=== PATIENT | female | born 1960 ===

== ENCOUNTER 2020-04-26 07:13 | Outpatient (REF) | payer MEDICARE, MEDICAID, SELFPAY ==
[2020-04-26 08:06] LABS: Estimated Average Glucose 146 mg/dL; Hemoglobin A1c % 6.7 %
[2020-04-26 08:32] LABS: Alanine Aminotransferase 38 U/L (0-31); Albumin Level 4.4 g/dL (3.5-5.0); Alkaline Phosphatase 69 U/L (39-117); Anion Gap 11 (12-20); Aspartate Amino Transferase 27 U/L (5-31); Bilirubin Total 0.6 mg/dL (0.0-1.0); Blood Urea Nitrogen 17 mg/dL (9-16); Calcium 8.6 mg/dL (8.4-10.2); Carbon Dioxide 31 mmol/L (22-29); Chloride 102 mmol/L (96-108); Cholesterol 157 mg/dL; Estimated Glomerular Filt Rate > 60; Glucose Random 107 mg/dL (60-115); HDL Cholesterol 41 mg/dL; LDL Cholesterol Calculated 97 mg/dl; Potassium 4.1 mmol/l (3.3-5.1); Sodium 140 mmol/L (135-145); Total Protein 6.8 g/dL (6.5-8.0); Triglycerides 97 mg/dL
== END 2020-04-26 07:14 | disposition home or self-care (01) ==
LOC: HO.LAB 07:13
PROVIDERS: Visit Provider Internal Medicine
DX: E11.9 Type 2 diabetes mellitus without complications (principal); F32.9 Major depressive disorder, single episode, unspecified; I10 Essential (primary) hypertension
CPT/HCPCS: 80053; 80061; 83036

== ENCOUNTER 2020-05-08 17:38 | Outpatient (REF) | payer MEDICARE, MEDICAID, SELFPAY ==
--- NOTE | 2020-05-08 | MM_ITS ---
EXAMINATION: MM SCREENING DIGITAL BREAST TOMOSYNTHESIS, BILATERAL CLINICAL INFORMATION: Screening. Asymptomatic. The lifetime risk of breast cancer based on the Tyrer-Cuzick Model is 9%. COMPARISON: Mammography: 10/29/2018, 10/27/2017, 04/22/2017 TECHNIQUE: Digital breast tomosynthesis is performed in both the craniocaudal and mediolateral oblique views along with computer-aided detection (CAD). Synthesized 2D images are generated from the tomosynthesis. FINDINGS: The breasts are heterogeneously dense, which may obscure small masses (ACR BI-RADS breast composition Category c). There is fine fibronodular parenchymal pattern similar to prior studies. There is no developing density or interval mass or architectural abnormality. Again, there are punctate calcifications in both breasts, number and distribution similar to prior studies. No significant changes. MM/MM tomosynthesis screening BI IMPRESSION: No significant changes from prior exams. ASSESSMENT: BI-RADS 2: Benign RECOMMENDATION: Routine annual mammography screening. This patient's information was entered into a reminder system with a target due date for their next mammogram.
== END 2020-05-08 17:39 | disposition home or self-care (01) ==
LOC: HO.MAMMO 17:38
PROVIDERS: PCP Internal Medicine; Visit Provider Internal Medicine
DX: Z12.31 Encounter for screening mammogram for malignant neoplasm of breast (principal)
CPT/HCPCS: 77063; 77067

== ENCOUNTER 2020-06-26 06:48 | Outpatient (REF) | payer MEDICARE, MEDICAID, SELFPAY | END 2020-06-26 06:49 | disposition home or self-care (01) | LOC: HO.LAB 06:48 | PROVIDERS: Visit Provider Internal Medicine | DX: Z20.822 Contact with and (suspected) exposure to COVID-19 (principal) | CPT/HCPCS: 36415; C9803; U0003 ==

== ENCOUNTER 2020-07-27 07:51 | Outpatient (REF) | payer MEDICARE, MEDICAID, SELFPAY ==
[2020-07-27 09:03] LABS: Alanine Aminotransferase 31 U/L (0-31); Albumin Level 4.2 g/dL (3.5-5.0); Alkaline Phosphatase 64 U/L (39-117); Anion Gap 14 (12-20); Aspartate Amino Transferase 28 U/L (5-31); Bilirubin Total 0.5 mg/dL (0.0-1.0); Blood Urea Nitrogen 11 mg/dL (9-16); Carbon Dioxide 28 mmol/L (22-29); Chloride 105 mmol/L (96-108); Estimated Glomerular Filt Rate > 60; Glucose Random 119 mg/dL (60-115); Potassium 4.2 mmol/L (3.3-5.1); Sodium 143 mmol/L (135-145); Total Protein 6.9 g/dL (6.5-8.0)
[2020-07-27 09:06] LABS: Creatinine Urine 139.57 mg/dL; Microalbum/Creatinine Ratio Ur 5.7 ug/mg cr
[2020-07-27 09:20] LABS: Estimated Average Glucose 137 mg/dL; Hemoglobin A1c % 6.4 %
== END 2020-07-27 07:52 | disposition home or self-care (01) ==
LOC: HO.LAB 07:51
PROVIDERS: PCP Internal Medicine; Visit Provider Internal Medicine
DX: E11.9 Type 2 diabetes mellitus without complications (principal); G60.9 Hereditary and idiopathic neuropathy, unspecified; I10 Essential (primary) hypertension
CPT/HCPCS: 36415; 80053; 82043; 83036

== ENCOUNTER → 2020-11-16 08:49 | Outpatient (BNVA) | payer MEDICARE, MEDICAID, SELFPAY | PROVIDERS: Visit Provider Nurse Practitioner | DX: K21.9 Gastro-esophageal reflux disease without esophagitis (principal); K59.00 Constipation, unspecified; R14.0 Abdominal distension (gaseous) | CPT/HCPCS: Q3014 ==

== ENCOUNTER → 2021-01-23 09:14 | Outpatient (BNVA) | payer MEDICARE, MEDICAID, SELFPAY | PROVIDERS: PCP Internal Medicine; Visit Provider Surgery Vascular Surgery | DX: I73.9 Peripheral vascular disease, unspecified (principal) | CPT/HCPCS: 99202 ==

== ENCOUNTER 2021-02-13 09:54 | Outpatient (REF) | payer MEDICARE, MEDICAID, SELFPAY ==
--- NOTE | ~2021-02-13 | US_ITS ---
EXAMINATION: NONINVASIVE ASSESSMENT OF THE ARTERIES OF BOTH LOWER EXTREMITIES Houston Rizzo MD CLINICAL INFORMATION: Peripheral vascular disease. TECHNIQUE: Bilateral lower extremity duplex ultrasound was performed with velocity measurements and waveform analysis in the common femoral arteries, profunda femoris arteries, proximal mid and distal superficial femoral arteries, popliteal arteries and tibial vessels. This study was performed only at rest. COMPARISON: None FINDINGS: Minimal plaque is documented. Waveforms throughout are biphasic. Velocities in cm/sec and phasicity as well as the presence of plaque are reported below. RIGHT LEG: Common Femoral: 219 Profunda Femoris: 94 Proximal SFA: 138 Mid SFA: 146 Distal SFA: 117 Popliteal: 92 Tibial: 103 LEFT LEG: Common Femoral: 212 Profunda Femoris: 94 Proximal SFA: 148 Mid SFA: 153 Distal SFA: 91 Popliteal: 92 Tibial: 125 US/US DELLA complete IMPRESSION: There is no convincing evidence of any hemodynamically significant lower extremity arterial disease by waveform or duplex Doppler criteria at rest. Biphasic flow is noted throughout.
--- NOTE | ~2021-02-13 | US_ITS ---
EXAMINATION: NONINVASIVE ASSESSMENT OF THE ARTERIES OF BOTH LOWER EXTREMITIES Houston Rizzo MD CLINICAL INFORMATION: Peripheral vascular disease. TECHNIQUE: Bilateral lower extremity duplex ultrasound was performed with velocity measurements and waveform analysis in the common femoral arteries, profunda femoris arteries, proximal mid and distal superficial femoral arteries, popliteal arteries and tibial vessels. This study was performed only at rest. COMPARISON: None FINDINGS: Minimal plaque is documented. Waveforms throughout are biphasic. Velocities in cm/sec and phasicity as well as the presence of plaque are reported below. RIGHT LEG: Common Femoral: 219 Profunda Femoris: 94 Proximal SFA: 138 Mid SFA: 146 Distal SFA: 117 Popliteal: 92 Tibial: 103 LEFT LEG: Common Femoral: 212 Profunda Femoris: 94 Proximal SFA: 148 Mid SFA: 153 Distal SFA: 91 Popliteal: 92 Tibial: 125 US/US arterial duplex LE BI IMPRESSION: There is no convincing evidence of any hemodynamically significant lower extremity arterial disease by waveform or duplex Doppler criteria at rest. Biphasic flow is noted throughout.
== END 2021-02-13 09:55 | disposition home or self-care (01) ==
LOC: HO.US 09:54
PROVIDERS: PCP Internal Medicine; Visit Provider Surgery Vascular Surgery
DX: I70.213 Atherosclerosis of native arteries of extremities with intermittent claudication, bilateral legs (principal)
CPT/HCPCS: 93923; 93925

== ENCOUNTER → 2021-02-22 14:08 | Outpatient (BNVA) | payer MEDICARE, MEDICAID, SELFPAY | PROVIDERS: PCP Internal Medicine; Visit Provider Surgery Vascular Surgery | DX: I73.9 Peripheral vascular disease, unspecified (principal) | CPT/HCPCS: Q3014 ==

== ENCOUNTER → 2021-05-22 08:25 | Outpatient (BNVA) | payer MEDICARE, MEDICAID, SELFPAY | PROVIDERS: PCP Internal Medicine; Visit Provider Nurse Practitioner | DX: Z13.89 Encounter for screening for other disorder (principal) | CPT/HCPCS: Q3014 ==

== ENCOUNTER 2021-05-30 09:12 | Outpatient (REF) | payer MEDICARE, MEDICAID, SELFPAY ==
[2021-05-30 09:35] LABS: MANUAL DIFF FLAG NO
[2021-05-30 09:42] LABS: Basophils Absolute Auto 0.1 X10*3/uL (0.0-0.2); Eosinophils Absolute Auto 0.2 X10*3/uL (0.0-0.4); Eosinophils Percent Auto 2.3 % (0-4); Hematocrit 42.9 % (37.0-47.0); Hemoglobin 13.9 g/dl (12.0-16.0); Imm Gran Abs Auto 0.03 X10*3/uL (0.00-0.03); Imm Gran Pct Auto 0.4 % (0.0-0.4); Lymphocytes Absolute Auto 2.8 X10*3/uL (1.2-4.9); Lymphocytes Percent Auto 40.7 % (20-40); Mean Corpuscular HGB Conc 32.4 g/dl (31.0-35.0); Mean Corpuscular Hemoglobin 28.8 pg (27.0-33.0); Mean Platelet Volume 9.1 fL (9.4-12.3); Monocytes Absolute Auto 0.5 X10*3/uL (0.1-1.2); Monocytes Percent Auto 7.4 % (2-11); Neutrophils Absolute Auto 3.3 x10*3/uL (2.0-8.3); Neutrophils Percent Auto 48.2 % (45-73); Platelet Count 340 X10*3/uL (160-400); Red Blood Count 4.82 X10*6/uL (4.20-5.50); Red Cell Distribution Width 13.6 % (11.0-16.0); White Blood Count 6.9 X10*3/uL (4.8-10.8)
[2021-05-30 09:51] LABS: Estimated Average Glucose 128 mg/dL; Hemoglobin A1c % 6.1 %
[2021-05-30 10:03] LABS: Alanine Aminotransferase 29 U/L (0-31); Albumin Level 4.4 g/dL (3.5-5.0); Alkaline Phosphatase 79 U/L (39-117); Anion Gap 12 (12-20); Aspartate Amino Transferase 35 U/L (5-31); Bilirubin Total 0.3 mg/dL (0.0-1.0); Blood Urea Nitrogen 13 mg/dL (9-16); Calcium 9.7 mg/dL (8.4-10.2); Carbon Dioxide 31 mmol/L (22-29); Chloride 104 mmol/L (96-108); Cholesterol 273 mg/dL; Estimated Glomerular Filt Rate > 60; Glucose Random 102 mg/dL (60-115); HDL Cholesterol 49 mg/dL; LDL Cholesterol Calculated 186 mg/dl; Potassium 4.7 mmol/L (3.3-5.1); Sodium 142 mmol/L (135-145); Total Protein 7.2 g/dL (6.5-8.0); Triglycerides 191 mg/dL
[2021-05-30 10:24] LABS: Thyroid Stimulating Hormone 1.32 uIU/mL (0.32-4.0)
[2021-05-30 11:00] LABS: Creatinine Urine 68.12 mg/dL; Microalbumin Urine < 5.0 mg/L
== END 2021-05-30 09:13 | disposition home or self-care (01) ==
LOC: HO.LAB 09:12
PROVIDERS: PCP Internal Medicine; Visit Provider Internal Medicine
DX: E11.9 Type 2 diabetes mellitus without complications (principal); E78.00 Pure hypercholesterolemia, unspecified; F32.5 Major depressive disorder, single episode, in full remission; I10 Essential (primary) hypertension
CPT/HCPCS: 36415; 80053; 80061; 82043; 83036; 84443; 85025

== ENCOUNTER 2021-06-11 08:24 | Outpatient (REF) | payer MEDICARE, MEDICAID, SELFPAY ==
--- NOTE | ~2021-06-11 | MM_ITS ---
EXAMINATION: MM SCREENING DIGITAL BREAST TOMOSYNTHESIS, BILATERAL CLINICAL INFORMATION: Screening. Asymptomatic. The lifetime risk of breast cancer based on the Tyrer-Cuzick Model is 7%. COMPARISON: Mammography: 05/08/2020, 10/29/2018, 10/27/2017, 04/22/2017 TECHNIQUE: Digital breast tomosynthesis is performed in both the craniocaudal and mediolateral oblique views along with computer-aided detection (CAD). Synthesized 2D images are generated from the tomosynthesis. FINDINGS: The breasts are heterogeneously dense, which may obscure small masses (ACR BI-RADS breast composition Category c). There are no significant masses, abnormal calcifications, or other abnormalities. Breast tissue composition borders on extremely dense. Recommend pattern is similar to prior studies. No developing density. There are bilateral punctate calcifications again seen similar to prior exams. MM/MM tomosynthesis screening BI IMPRESSION: No mammographic evidence of malignancy. ASSESSMENT: BI-RADS 2: Benign RECOMMENDATION: Routine annual mammography screening. This patient's information was entered into a reminder system with a target due date for their next mammogram.
== END 2021-06-11 08:25 | disposition home or self-care (01) ==
LOC: HO.MAMMO 08:24
PROVIDERS: PCP Internal Medicine; Visit Provider Internal Medicine
DX: Z12.31 Encounter for screening mammogram for malignant neoplasm of breast (principal)
CPT/HCPCS: 77063; 77067

== ENCOUNTER 2021-07-11 08:43 | Day surgery (SDC) | payer MEDICARE, MEDICAID, SELFPAY ==
--- NOTE | 2021-07-10 12:29 | HO.ANESPROP2 ---
Documented by User: Nu Allred NP 07/10/21 12:30 HPI - Anesthesia Eval Consult details Narrative: 61yo F for Colonoscopy PMFSH Active Problems Active Problems: All Active Problems (Updated 07/04/21 @ 16:18 by Jessica Grewal, RN) Abdominal bloating (Acute) Constipation (Acute) GERD (gastroesophageal reflux disease) (Acute) PAD (peripheral artery disease) (Acute) Colon cancer screening (Acute) Past Medical History Medical History Arthritis Bipolar 1 disorder Depression Dyslipidemia Fatty liver Fibromyalgia GERD (gastroesophageal reflux disease) History of marijuana use HTN (hypertension) IBS (irritable bowel syndrome) Personal history of COVID-19 Smoker Vertigo Surgical History Surgical History History of esophagogastroduodenoscopy (EGD) History of tubal ligation Hx of colonoscopy Social History Social History Patient Tobacco Use Status: Current everyday Tobacco user Use of substances other than those prescribed or required for medical reasons: No Are you DNR?: No Advance Directives: No Advance Directives Information Provided: Yes Meds Allergies Allergy/AdvReac Type Severity Reaction Status Date / Time gabapentin [GABAPENTIN] Allergy Mild MUSCLE Verified 07/04/21 16:11 SPASMS quetiapine [Seroquel] Allergy Unknown unknown Verified 07/04/21 16:11 duloxetine [From CYMBALTA] AdvReac Mild TREMORS Verified 07/04/21 16:11 hydroxyzine [From VISTARIL] AdvReac Mild BLURRED Verified 07/04/21 16:11 VISION milnacipran [From SAVELLA] AdvReac Mild BLURRED Verified 07/04/21 16:11 VISION pregabalin [From LYRICA] AdvReac Mild MUSCLE Verified 07/04/21 16:11 SPASMS, SLEEPINESS Home Medications Medication Instructions Recorded Confirmed Last Taken Type diclofenac sodium 75 mg 75 mg PO BID 11/16/20 07/04/21 Unknown History tablet,delayed release fluoxetine 40 mg capsule 40 mg PO DAILY 11/16/20 07/04/21 Unknown History hydrochlorothiazide 25 mg tablet 25 mg PO DAILY 11/16/20 07/04/21 Unknown History losartan 100 1 tab PO DAILY 11/16/20 07/04/21 Unknown History mg-hydrochlorothiazide 25 mg tablet rosuvastatin 20 mg tablet 20 mg PO DAILY 11/16/20 07/04/21 Unknown History triamcinolone acetonide 0.5 % 1 appl TOPICAL BID 11/16/20 07/04/21 Unknown History topical cream Exam Exam Date and Time: July 10, 2021 1229 Pertinent Lab Results Pertinent Lab Results: Laboratory Tests 05/30/21 05/30/21 09:32 09:32 WBC 6.9 Hgb 13.9 Hct 42.9 Plt Count 340 Sodium 142 Potassium 4.7 Chloride 104 Carbon Dioxide 31 H BUN 13 Creatinine 0.66 Assessment and Plan Assessment Anesthesia Assessment: Chart Reviewed Documented by User: Jossie Souas MD 07/11/21 10:22 [facility] Past Medical History Medical History Arthritis Bipolar 1 disorder Depression Dyslipidemia Fatty liver Fibromyalgia GERD (gastroesophageal reflux disease) History of marijuana use HTN (hypertension) IBS (irritable bowel syndrome) Personal history of COVID-19 Smoker Vertigo Surgical History Surgical History History of esophagogastroduodenoscopy (EGD) History of tubal ligation Hx of colonoscopy History of Problems with Anesthesia: No Social History Social History Patient Tobacco Use Status: Current everyday Tobacco user Use of substances other than those prescribed or required for medical reasons: No Are you DNR?: No Advance Directives: No Advance Directives Information Provided: Yes Meds Allergies Allergy/AdvReac Type Severity Reaction Status Date / Time gabapentin [GABAPENTIN] Allergy Mild MUSCLE Verified 07/04/21 16:11 SPASMS quetiapine [Seroquel] Allergy Unknown unknown Verified 07/04/21 16:11 duloxetine [From CYMBALTA] AdvReac Mild TREMORS Verified 07/04/21 16:11 hydroxyzine [From VISTARIL] AdvReac Mild BLURRED Verified 07/04/21 16:11 VISION milnacipran [From SAVELLA] AdvReac Mild BLURRED Verified 07/04/21 16:11 VISION pregabalin [From LYRICA] AdvReac Mild MUSCLE Verified 07/04/21 16:11 SPASMS, SLEEPINESS Home Medications Medication Instructions Recorded Confirmed Last Taken Type diclofenac sodium 75 mg 75 mg PO BID 11/16/20 07/04/21 Unknown History tablet,delayed release fluoxetine 40 mg capsule 40 mg PO DAILY 11/16/20 07/04/21 Unknown History hydrochlorothiazide 25 mg tablet 25 mg PO DAILY 11/16/20 07/04/21 Unknown History losartan 100 1 tab PO DAILY 11/16/20 07/04/21 Unknown History mg-hydrochlorothiazide 25 mg tablet rosuvastatin 20 mg tablet 20 mg PO DAILY 11/16/20 07/04/21 Unknown History triamcinolone acetonide 0.5 % 1 appl TOPICAL BID 11/16/20 07/04/21 Unknown History topical cream Exam Airway Mallampati Class: II TM Dist: >3cm Neck ROM: Full Loose/Missing/Broken Teeth: No Heart: RRR Lungs: CTA Assessment and Plan Assessment Anesthesia Assessment: Anesthesia Plan Discussed Final Anesthetic Review History of Problems with Anesthesia: No NPO: Yes ASA Class: II Final Preanesthetic Review: Meds/Allgs Chart Reviewed, Consent Obtained/Reviewed and Anes Risks/Benef Reviewed Patient Risk: Low Procedure Risk: Low Anesthetic Plan Anesthetic Plan: MAC: Disposition: Standard PACU
[2021-07-11 09:54] VITALS: BP 159/78; PULSE 67; RESP 16; TEMP 36.6; O2SAT 98; BMI 26.2
[2021-07-11] MEDS: Lactated Ringers 1,000 ML 100 ML IVCONT (10:14)
--- NOTE | 2021-07-11 10:33 | MHC.SHP ---
Pre-Procedural Eval Section A Date of Service: 07/11/21 Section B Chief Complaint: Screening Relevant Family History (Specify if Yes): No Relevant Social History: Tobacco Use Present Medications: see Short Stay Collaborative assessment Medical History: Significant History (Arthritis Bipolar 1 disorder Depression Dyslipidemia Fatty liver Fibromyalgia GERD (gastroesophageal reflux disease) History of marijuana use HTN (hypertension) IBS (irritable bowel syndrome) Personal history of COVID-19 Smoker Vertigo) History of Previous Operations: Relevant previous surgery/procedure and date(s) (History of esophagogastroduodenoscopy (EGD) History of tubal ligation Hx of colonoscopy) Allergies: Allergies Allergy/AdvReac Type Severity Reaction Status Date / Time gabapentin [GABAPENTIN] Allergy Mild MUSCLE Verified 07/04/21 16:11 SPASMS quetiapine [Seroquel] Allergy Unknown unknown Verified 07/04/21 16:11 duloxetine [From CYMBALTA] AdvReac Mild TREMORS Verified 07/04/21 16:11 hydroxyzine [From VISTARIL] AdvReac Mild BLURRED Verified 07/04/21 16:11 VISION milnacipran [From SAVELLA] AdvReac Mild BLURRED Verified 07/04/21 16:11 VISION pregabalin [From LYRICA] AdvReac Mild MUSCLE Verified 07/04/21 16:11 SPASMS, SLEEPINESS Review of Systems Sugical H&P ROS: Negative: Constitution, Cardiovascular, Respiratory, Neurological, Psychiatric, Hem-Onc, Allergic/Immunologic, Gastrointestinal, Genitourinary, Musculoskeletal, Integumentary, Endocrine and Eyes/Ears/Nose/Throat Exam Surgical H&P Exam: Normal: HEENT, Normal: Heart, Normal: Lungs, Normal: Extremities, Normal: Abdomen, Normal: Skin and Normal: Neurological Plan Diagnosis/Plan: Unchanged I have reviewed the history and physical and performed a pertinent physical examination on my patient. No changes have occurred unless specified.
--- NOTE | 2021-07-11 10:54 | P.BOP_ITS ---
Brief Operative Note Date of Service: 07/11/21 Pre-op diagnosis: screening colon Post-op diagnosis: same Procedure: see op note Surgeon: Dayron Alamo MD Anesthesia: MAC Was an Counter Roller used for this Procedure?: No Estimated blood loss (mL): 0 Condition: stable Disposition: PACU
--- NOTE | 2021-07-11 10:54 | W.PM.OPN ---
Operative Note Operative Note Date of Service: 07/11/21 Narrative: Operative Information Procedure Description: Colonoscopy COLONOSCOPY Instrument: Olympus variable stiffness pediatric scope 190L Colonoscopy Monitoring: Vital signs and clinical assessment, continuous EKG monitoring, Pulse oximetry, Carbon Dioxide monitoring and blood pressure monitoring were done throughout the procedure. Colon withdrawal time was 9 minutes. Procedure: The patient was placed in the left lateral decubitis position and pre-procedure medications were administered. After a digital rectal examination of the ano-rectum, the video colonoscope was inserted into the rectum and advanced through the colon to the cecum/TI. The colonoscope was slowly withdrawn in a retrograde panoramic fashion and the colon mucosa was carefully examined including a retroflexed view of the rectum. Findings and interventions are described below. Procedure Difficulty: easy Findings: Terminal Ileum-normal Cecum:normal Ascending Colon: normal Transverse Colon -normal Descending Colon:normal Sigmoid Colon: normal Rectosigmoid junction: x 2 sessile polyps 7-9 mm removed with cold snare Rectum: Retroflexion with small internal hemorrhoids, grade I Anorectum - normal Colon preparation: [place] Bowel Preparation Scale Right colon; 3 Transverse colon: 3 Left colon; 3 (0 = Unprepared colon segment with mucosa not seen due to solid stool that cannot be cleared. 1 = Portion of mucosa of the colon segment seen, but other areas of the colon segment not well seen due to staining, residual stool and/or opaque liquid. 2 = Minor amount of residual staining, small fragments of stool and/or opaque liquid, but mucosa of colon segment seen well. 3 = Entire mucosa of colon segment seen well with no residual staining, small fragments of stool or opaque liquid) Impression and Post Procedure Diagnosis: polyps internal hemorrhoids Plan: High fiber diet leaflet Avoid straining at stool, epsom salts and sitz bath, anusol supps or cream Repeat Colonoscopy in 5 years if adenomatous polyps, 10 years if hyperplastic or earlier if clinically indicated Above findings were reviewed with the patient and relevant handouts were provided if indicated.
[2021-07-11 11:04] VITALS: BP 127/67; PULSE 67; RESP 18; TEMP 36.8; O2SAT 99
[2021-07-11 11:05] VITALS: BP 150/69; PULSE 68; RESP 17; TEMP 36.8; O2SAT 99
== END 2021-07-11 11:37 | disposition home or self-care (01) ==
PROVIDERS: PCP Internal Medicine; Visit Provider Internal Medicine Gastroenterology
PROC: 0DJD8ZZ Inspection of Lower Intestinal Tract, Via Natural or Artificial Opening Endoscopic (ICD-10-PCS; CPT 45378; principal; 2021-07-11 11:10)
DX: Z12.11 Encounter for screening for malignant neoplasm of colon (principal); K63.5 Polyp of colon; K64.0 First degree hemorrhoids; K59.00 Constipation, unspecified; R14.0 Abdominal distension (gaseous); K76.0 Fatty (change of) liver, not elsewhere classified; I10 Essential (primary) hypertension; E78.5 Hyperlipidemia, unspecified; F31.9 Bipolar disorder, unspecified; M79.7 Fibromyalgia; Z79.899 Other long term (current) drug therapy; Z88.8 Allergy status to other drugs, medicaments and biological substances; F12.90 Cannabis use, unspecified, uncomplicated; F17.200 Nicotine dependence, unspecified, uncomplicated; Z86.16 Personal history of COVID-19
CPT/HCPCS: 45385; 88305

== ENCOUNTER 2021-10-18 08:56 | Outpatient (REF) | payer MEDICARE, MEDICAID, SELFPAY ==
[2021-10-18 12:30] LABS: Alanine Aminotransferase 18 U/L (0-31); Albumin Level 4.3 g/dL (3.5-5.0); Alkaline Phosphatase 76 U/L (39-117); Anion Gap 14 (12-20); Aspartate Amino Transferase 20 U/L (5-31); Bilirubin Total 0.4 mg/dL (0.0-1.0); Blood Urea Nitrogen 12 mg/dL (9-16); Calcium 9.9 mg/dL (8.4-10.2); Carbon Dioxide 31 mmol/L (22-29); Chloride 103 mmol/L (96-108); Cholesterol 271 mg/dL; Estimated Glomerular Filt Rate > 60; Glucose Random 100 mg/dL (60-115); HDL Cholesterol 45 mg/dL; LDL Cholesterol Calculated 181 mg/dl; Potassium 4.5 mmol/L (3.3-5.1); Sodium 143 mmol/L (135-145); Total Protein 7.1 g/dL (6.5-8.0); Triglycerides 229 mg/dL
== END 2021-10-18 08:57 | disposition home or self-care (01) ==
LOC: HO.LAB 08:56
PROVIDERS: PCP Internal Medicine; Visit Provider Internal Medicine
DX: E78.00 Pure hypercholesterolemia, unspecified (principal); I10 Essential (primary) hypertension; F17.200 Nicotine dependence, unspecified, uncomplicated; Z91.14 Patient's other noncompliance with medication regimen
CPT/HCPCS: 36415; 80053; 80061

== ENCOUNTER 2021-11-14 06:42 | Outpatient (REF) | payer MEDICARE, MEDICAID, SELFPAY ==
--- NOTE | ~2021-11-14 | XR_ITS ---
EXAMINATION: XR SHOULDER, LEFT CLINICAL INFORMATION: Pain. COMPARISON: None. TECHNIQUE: AP external rotation, Grashey, scapular Y, and axillary views of the left shoulder. FINDINGS: Mild degeneration at the AC joint. Mild acromial spurring. Mild sclerotic change at the insertion of the superior rotator cuff. Mild degeneration the inferior glenohumeral articulation. There is no acute finding. XR/XR shoulder LT min 2V IMPRESSION: Mild degenerative changes. Findings may preclude to impingement. If further evaluation is warranted, recommend MR.
== END 2021-11-14 06:43 | disposition home or self-care (01) ==
LOC: HO.HOSX 06:42
PROVIDERS: Visit Provider Physician Assistant
DX: M75.22 Bicipital tendinitis, left shoulder (principal); E78.5 Hyperlipidemia, unspecified
CPT/HCPCS: 20610; 36415; 73030; 80053; 80061; 99202; J1040

== ENCOUNTER 2021-11-14 07:59 | Outpatient (REF) | payer MEDICARE, MEDICAID, SELFPAY ==
[2021-11-14 09:13] LABS: Alanine Aminotransferase 20 U/L (0-31); Albumin Level 4.1 g/dL (3.5-5.0); Alkaline Phosphatase 73 U/L (39-117); Anion Gap 13 (12-20); Aspartate Amino Transferase 20 U/L (5-31); Bilirubin Total 0.3 mg/dL (0.0-1.0); Blood Urea Nitrogen 11 mg/dL (9-16); Calcium 9.7 mg/dL (8.4-10.2); Carbon Dioxide 28 mmol/L (22-29); Chloride 104 mmol/L (96-108); Cholesterol 267 mg/dL; Estimated Glomerular Filt Rate > 60; Glucose Random 102 mg/dL (60-115); HDL Cholesterol 41 mg/dL; LDL Cholesterol Calculated 154 mg/dl; Potassium 4.4 mmol/L (3.3-5.1); Sodium 141 mmol/L (135-145); Total Protein 6.9 g/dL (6.5-8.0); Triglycerides 360 mg/dL
== END 2021-11-14 08:00 | disposition home or self-care (01) ==
LOC: HO.LAB 07:59
PROVIDERS: PCP Internal Medicine; Visit Provider Internal Medicine
DX: Z13.89 Encounter for screening for other disorder (principal)
CPT/HCPCS: 36415; 80053; 80061

== ENCOUNTER → 2021-11-16 08:41 | Outpatient (BNVA) | payer MEDICARE, MEDICAID, SELFPAY | PROVIDERS: PCP Internal Medicine; Visit Provider Nurse Practitioner | DX: Z12.11 Encounter for screening for malignant neoplasm of colon (principal); K21.9 Gastro-esophageal reflux disease without esophagitis; K59.00 Constipation, unspecified; R14.0 Abdominal distension (gaseous) | CPT/HCPCS: 99212 ==

== ENCOUNTER → 2021-12-12 08:03 | Outpatient (BNVA) | payer MEDICARE, MEDICAID, SELFPAY | PROVIDERS: PCP Internal Medicine; Visit Provider Orthopaedic Surgery | DX: M65.4 Radial styloid tenosynovitis [de Quervain] (principal); R20.0 Anesthesia of skin; R20.2 Paresthesia of skin | CPT/HCPCS: 99202 ==

== ENCOUNTER 2021-12-28 12:08 | Emergency (ER) | payer MEDICARE, MEDICAID, SELFPAY ==
--- NOTE | ~2021-12-28 | XR_ITS ---
EXAMINATION: XR CHEST CLINICAL INFORMATION: Cough COMPARISON: May 2018. TECHNIQUE: 2 views of the chest were obtained. FINDINGS: There is a subtle patchy opacity of the peripheral left upper lobe min new since the previous evaluation. A patchy infiltrate is considered. No distinct hilar adenopathy or pleural effusion. Minimal thoracic spondylitic changes are observed. XR/XR chest 2V IMPRESSION: Subtle patchy opacity of the peripheral left upper lobe new since previous evaluation. Underlying infiltrate considered. Follow-up recommended to assess for complete clearing.
[2021-12-28 12:22] VITALS: BP 177/93; PULSE 78; RESP 18; TEMP 36.3; O2SAT 97; BMI 25.7
[2021-12-28 14:52] LABS: MANUAL DIFF FLAG NO
[2021-12-28 14:54] LABS: Basophils Absolute Auto 0.1 X10*3/uL (0.0-0.2); Basophils Percent Auto 0.8 % (0-2); Eosinophils Absolute Auto 0.2 X10*3/uL (0.0-0.4); Eosinophils Percent Auto 1.9 % (0-4); Hematocrit 40.9 % (37.0-47.0); Hemoglobin 13.2 g/dl (12.0-16.0); Imm Gran Abs Auto 0.02 X10*3/uL (0.00-0.03); Imm Gran Pct Auto 0.2 % (0.0-0.4); Lymphocytes Absolute Auto 2.8 X10*3/uL (1.2-4.9); Lymphocytes Percent Auto 33.1 % (20-40); Mean Corpuscular HGB Conc 32.3 g/dl (31.0-35.0); Mean Corpuscular Hemoglobin 27.9 pg (27.0-33.0); Mean Corpuscular Volume 86.5 fL (80.0-98.0); Mean Platelet Volume 9.4 fL (9.4-12.3); Monocytes Absolute Auto 0.7 X10*3/uL (0.1-1.2); Monocytes Percent Auto 8.4 % (2-11); Neutrophils Absolute Auto 4.6 x10*3/uL (2.0-8.3); Neutrophils Percent Auto 55.6 % (45-73); Platelet Count 322 X10*3/uL (160-400); Red Blood Count 4.73 X10*6/uL (4.20-5.50); Red Cell Distribution Width 13.8 % (11.0-16.0); White Blood Count 8.3 X10*3/uL (4.8-10.8)
[2021-12-28 15:15] LABS: Alanine Aminotransferase 23 U/L (0-31); Albumin Level 4.5 g/dL (3.5-5.0); Alkaline Phosphatase 69 U/L (39-117); Anion Gap 12 (12-20); Aspartate Amino Transferase 17 U/L (5-31); Bilirubin Direct < 0.2 mg/dL (0.0-0.5); Bilirubin Total 0.4 mg/dL (0.0-1.0); Blood Urea Nitrogen 13 mg/dL (9-16); Calcium 9.8 mg/dL (8.4-10.2); Carbon Dioxide 31 mmol/L (22-29); Chloride 100 mmol/L (96-108); Creatinine Clr Calc Pharmacy 91.4; Estimated Glomerular Filt Rate > 60; Glucose Random 106 mg/dL (60-115); Potassium 4.1 mmol/L (3.3-5.1); Sodium 139 mmol/L (135-145); Total Protein 7.1 g/dL (6.5-8.0)
[2021-12-28 15:35] LABS: TSH reflex Free T4 0.77 uIU/mL (0.32-4.0)
--- NOTE | 2021-12-28 16:38 | ED_ITS ---
HPI - General Adult General Chief complaint: Anxiety Stated complaint: Anxiety Time Seen by Provider: 12/28/21 14:12 History of Present Illness HPI narrative: Patient complains of cough, dry cough for several days, body aches fatigue, tingling sensation in all extremities, feeling anxious, no chest pain no shortness of breath no suicidal or homicidal ideation not hearing voices Related Data Home Medications Medication Instructions Recorded Confirmed diclofenac sodium 75 mg 75 mg PO BID 11/16/20 07/04/21 tablet,delayed release fluoxetine 40 mg capsule 40 mg PO DAILY 11/16/20 07/04/21 hydrochlorothiazide 25 mg tablet 25 mg PO DAILY 11/16/20 07/04/21 rosuvastatin 20 mg tablet 20 mg PO DAILY 11/16/20 07/04/21 triamcinolone acetonide 0.5 % 1 appl topical BID 11/16/20 07/04/21 topical cream diphenhydramine HCl 25 mg tablet 25 mg PO BID PRN allergies 11/16/21 (Banophen) losartan 50 mg tablet 50 mg PO DAILY 11/16/21 Previous Rx's Medication Instructions Recorded simethicone 80 mg chewable tablet 80 - 160 mg PO QID PRN abdominal 03/05/21 distention 30 days #240 tabs omeprazole 20 mg capsule,delayed 20 mg PO DAILY #30 caps 05/22/21 release peg 3350-electrolytes 236 240 ml PO Q10M 1 day #4,000 mL 05/22/21 gram-22.74 gram-6.74 gram-5.86 gram solution (Golytely) magnesium oxide 400 mg (241.3 mg 400 mg PO BEDTIME 90 days #90 tabs 10/29/21 magnesium) tablet amoxicillin 500 mg tablet 1,000 mg PO TID 5 days #30 tabs 12/28/21 azithromycin 250 mg tablet See Rx Instructions PO .COMPLEX #6 12/28/21 (Zithromax Z-Az) tabs lorazepam 0.5 mg tablet (Ativan) 0.5 mg PO BID PRN anxiety #10 tabs 12/28/21 Allergies Allergy/AdvReac Type Severity Reaction Status Date / Time gabapentin [GABAPENTIN] Allergy Mild MUSCLE Verified 12/12/21 08:21 SPASMS quetiapine [Seroquel] Allergy Unknown unknown Verified 12/12/21 08:21 duloxetine [From CYMBALTA] AdvReac Mild TREMORS Verified 12/12/21 08:21 hydroxyzine [From VISTARIL] AdvReac Mild BLURRED Verified 12/12/21 08:21 VISION milnacipran [From SAVELLA] AdvReac Mild BLURRED Verified 12/12/21 08:21 VISION pregabalin [From LYRICA] AdvReac Mild MUSCLE Verified 12/12/21 08:21 SPASMS, SLEEPINESS Review of Systems Review of Systems: Positive for cough and tingling and anxiety Negatives are no fever no chills no headache no stiff neck no confusion no dizziness no chest pain no palpitations no shortness of breath no abdominal pain no nausea or vomiting no dysuria no back pain no skin rash no numbness or weakness Yes all other systems are reviewed and are negative [facility] Past Medical History Source: nursing notes reviewed Medical History Arthritis Bipolar 1 disorder Depression Dyslipidemia Fatty liver Fibromyalgia GERD (gastroesophageal reflux disease) History of marijuana use HTN (hypertension) IBS (irritable bowel syndrome) Personal history of COVID-19 Smoker Vertigo Surgical History History of esophagogastroduodenoscopy (EGD) History of tubal ligation Hx of colonoscopy Social History Social History Patient Tobacco Use Status: Current everyday Tobacco user Advance Directives: No Advance Directives Information Provided: No Current occupational status: disabled 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 Physical Exam ED Vital Signs: Vital Signs - 24 hr 12/28/21 12:22 Temperature 97.4 F Pulse Rate 78 Respiratory Rate 18 Blood Pressure 177/93 H Pulse Oximetry 97 Oxygen Delivery Method Room Air BMI result Body Mass Index 25.7 General appearance is no acute distress Head is normocephalic atraumatic Ears are normal Eyes pupils round reactive to light extraocular motions are intact The neck is supple The pharynx is clear no redness swelling or exudate the voice is normal The chest is clear to auscultation bilateral, no pleuritic discomfort no respiratory distress Heart no murmur Abdomen soft nontender Extremities full range of motion x4 Skin no rash Neuro gait and balance are normal, interaction both expression and comprehension are normal, cranial nerves 2-12 intact as tested, motor is 5 5 x 4, sensation is intact and symmetrical, cerebellar exam is normal Course Course Course Narrative: Labs including thyroid did not disclose any acute abnormality Chest x-ray did show a possible left upper lobe infiltrate and patient did have a cough so patient is treated for possible pneumonia Other symptoms of tingling and feeling anxious were addressed with an as-needed prescription for a few Ativan and recommendation follow with primary care doctor for possible treatment for anxiety Medical Decision Making Lab Data Lab results reviewed: Yes I reviewed the patient's lab results. Result diagrams: 12/28/21 14:49 12/28/21 14:49 Labs: Lab Results 12/28/21 12/28/21 Range/Units 14:49 14:49 WBC 8.3 (4.8-10.8) X10*3/uL RBC 4.73 (4.20-5.50) X10*6/uL Hgb 13.2 (12.0-16.0) g/dl Hct 40.9 (37.0-47.0) % MCV 86.5 (80.0-98.0) fL MCH 27.9 (27.0-33.0) pg MCHC 32.3 (31.0-35.0) g/dl RDW 13.8 (11.0-16.0) % Plt Count 322 (160-400) X10*3/uL MPV 9.4 (9.4-12.3) fL Immature Gran % (Auto) 0.2 (0.0-0.4) % Neut % (Auto) 55.6 (45-73) % Lymph % (Auto) 33.1 (20-40) % [place] % (Auto) 8.4 (2-11) % Eos % (Auto) 1.9 (0-4) % Baso % (Auto) 0.8 (0-2) % Lymph # (Auto) 2.8 (1.2-4.9) X10*3/uL [place] # (Auto) 0.7 (0.1-1.2) X10*3/uL Eos # (Auto) 0.2 (0.0-0.4) X10*3/uL Baso # (Auto) 0.1 (0.0-0.2) X10*3/uL Abs Immat Gran (auto) 0.02 (0.00-0.03) X10*3/uL Absolute Neuts (auto) 4.6 (2.0-8.3) x10*3/uL Absolute Nucleated RBC 0.000 (0.0-0.012) X10*3/uL Nucleated RBC % (auto) 0.0 (0.0-0.2) /100WBC Sodium 139 (135-145) mmol/L Potassium 4.1 (3.3-5.1) mmol/L Chloride 100 (96-108) mmol/L Carbon Dioxide 31 H (22-29) mmol/L Anion Gap 12 (12-20) BUN 13 (9-16) mg/dL Creatinine 0.62 (0.5-1.4) mg/dL Estim Creat Clear Calc 91.4 Estimated GFR > 60 Random Glucose 106 (60-115) mg/dL Calcium 9.8 (8.4-10.2) mg/dL Total Bilirubin 0.4 (0.0-1.0) mg/dL Direct Bilirubin < 0.2 (0.0-0.5) mg/dL AST 17 (5-31) U/L ALT 23 (0-31) U/L Alkaline Phosphatase 69 (39-117) U/L Total Protein 7.1 (6.5-8.0) g/dL Albumin 4.5 (3.5-5.0) g/dL TSH 0.77 (0.32-4.0) uIU/mL Discharge Plan Discharge Clinical Impression: Pneumonia, Anxiety Patient Disposition: Home, Self-Care Additional Instructions: X-ray showed a likely early pneumonia so we are treating with antibiotics Best plan is to take probiotics, vitamin [id number] available in any pharmacy, with antibiotics to prevent diarrhea Return any time difficulty breathing any worse condition or concerns Our blood test is did not show any dangerous condition, we checked liver kidneys thyroid and blood count Other symptoms may be from anxiety so I wrote you for a few Ativan to use only if needed for anxiety attack and best plan is follow with your doctor as there are many medications that prevent anxiety Prescriptions: New azithromycin [Zithromax Z-Az] 250 mg tablet See Rx Instructions .ROUTE .COMPLEX Qty: 6 0RF Rx Instructions: For 250 mg dose pack: take 500 mg today (day 1), then 250 mg for 4 days (days 2-5) amoxicillin 500 mg tablet 1,000 mg PO TID 5 Days Qty: 30 0RF lorazepam [Ativan] 0.5 mg tablet 0.5 mg PO BID PRN (Reason: anxiety) Qty: 10 0RF Rx Instructions: This medication may cause drowsiness so no driving for 8 hours after taking No Action simethicone 80 mg tablet,chewable 80 - 160 mg PO QID PRN (Reason: abdominal distention) 30 Days Qty: 240 3RF magnesium oxide 400 mg (241.3 mg magnesium) tablet 400 mg PO BEDTIME 90 Days Qty: 90 1RF fluoxetine 40 mg capsule 40 mg PO DAILY triamcinolone acetonide 0.5 % cream 1 appl topical BID hydrochlorothiazide 25 mg tablet 25 mg PO DAILY rosuvastatin 20 mg tablet 20 mg PO DAILY diclofenac sodium 75 mg tablet,delayed release (DR/EC) 75 mg PO BID peg 3350-electrolytes [Golytely] 236-22.74-6.74 -5.86 gram recon soln 240 ml PO Q10M 1 Days Qty: 4000 0RF Rx Instructions: until fecal effluent is clear; do not exceed a total volume of 2,000 mL omeprazole 20 mg capsule,delayed release(DR/EC) 20 mg PO DAILY Qty: 30 6RF diphenhydramine HCl [Banophen] 25 mg tablet 25 mg PO BID PRN (Reason: allergies) losartan 50 mg tablet 50 mg PO DAILY Interventions: ED Discharge Assessment Last Done: 12/28/21 17:04 Discharge Date/Time: 12/28/21 17:05
[2021-12-28] MEDS: Azithromycin 500 MG TABLET PO (16:57)
[2021-12-28] MEDS: Amoxicillin 500 MG CAPSULE 1000 MG PO (16:57)
== END 2021-12-28 17:05 | disposition home or self-care (01) ==
PROVIDERS: Physician Assistant Medical; Emergency Provider Emergency Medicine; PCP Internal Medicine
DX: F41.9 Anxiety disorder, unspecified (principal); J18.9 Pneumonia, unspecified organism; I10 Essential (primary) hypertension; E78.5 Hyperlipidemia, unspecified; Z79.02 Long term (current) use of antithrombotics/antiplatelets; Z79.899 Other long term (current) drug therapy
CPT/HCPCS: 36415; 71046; 80048; 80076; 84443; 85025; 99283

== ENCOUNTER 2022-01-03 07:51 | Outpatient (REF) | payer MEDICARE, MEDICAID, SELFPAY | END 2022-01-03 07:52 | disposition home or self-care (01) | LOC: HO.LAB 07:51 | PROVIDERS: PCP Internal Medicine; Visit Provider Internal Medicine | DX: Z13.89 Encounter for screening for other disorder (principal) ==

== ENCOUNTER 2022-01-04 09:28 | Outpatient (REF) | payer MEDICARE, MEDICAID, SELFPAY | END 2022-01-04 09:29 | disposition home or self-care (01) | LOC: HO.LNP 09:28 | PROVIDERS: Visit Provider Internal Medicine | DX: F32.A Depression, unspecified (principal); J18.1 Lobar pneumonia, unspecified organism | CPT/HCPCS: 87177; 87209 ==

== ENCOUNTER 2022-01-21 11:22 | Outpatient (REF) | payer MEDICARE, MEDICAID, SELFPAY ==
--- NOTE | ~2022-01-21 | XR_ITS ---
EXAMINATION: XR CHEST CLINICAL INFORMATION: Follow-up pneumonia COMPARISON: December 28, 2021 and May 31, 2018 TECHNIQUE: 2 views of the chest were obtained. FINDINGS: No significant abnormality is noted involving the heart, lungs, mediastinum, bony thorax or soft tissues. XR/XR chest 2V IMPRESSION: No acute disease.
== END 2022-01-21 11:23 | disposition home or self-care (01) ==
LOC: HO.XRAY 11:22
PROVIDERS: PCP Internal Medicine; Visit Provider Internal Medicine
DX: J18.9 Pneumonia, unspecified organism (principal)
CPT/HCPCS: 71046

== ENCOUNTER → 2022-02-01 08:55 | Outpatient (BNVA) | payer MEDICARE, MEDICAID, SELFPAY | PROVIDERS: PCP Internal Medicine; Visit Provider Nurse Practitioner | DX: K59.00 Constipation, unspecified (principal); K21.9 Gastro-esophageal reflux disease without esophagitis | CPT/HCPCS: 99212 ==

== ENCOUNTER 2022-02-07 07:55 | Outpatient (REF) | payer MEDICARE, MEDICAID, SELFPAY ==
--- NOTE | 2022-02-07 08:00 | EMG_ITS ---
Right median and ulnar motor and sensory studies were performed. Right radial sensory, and median and lateral antecubital brachial sensory studies were performed. Needle examination was performed on paraspinal and limb muscles. IMPRESSION: This is an unremarkable study with no evidence of median or ulnar entrapment neuropathy, plexopathy, or radiculopathy. MD JORI Garcia/KIAH / [id number]
== END 2022-02-07 07:56 | disposition home or self-care (01) ==
LOC: HO.NEURO 07:55
PROVIDERS: PCP Internal Medicine; Visit Provider Orthopaedic Surgery
DX: R20.0 Anesthesia of skin (principal); R20.2 Paresthesia of skin
CPT/HCPCS: 95886; 95910

== ENCOUNTER 2022-02-18 07:53 | Outpatient (REF) | payer MEDICARE, MEDICAID, SELFPAY ==
[2022-02-18 09:13] LABS: Alanine Aminotransferase 19 U/L (0-31); Albumin Level 4.3 g/dL (3.5-5.0); Alkaline Phosphatase 73 U/L (39-117); Anion Gap 17 (12-20); Aspartate Amino Transferase 17 U/L (5-31); Bilirubin Total 0.4 mg/dL (0.0-1.0); Blood Urea Nitrogen 18 mg/dL (9-16); Calcium 9.7 mg/dL (8.4-10.2); Carbon Dioxide 28 mmol/L (22-29); Chloride 102 mmol/L (96-108); Cholesterol 287 mg/dL; Estimated Glomerular Filt Rate > 60; Glucose Random 109 mg/dL (60-115); HDL Cholesterol 49 mg/dL; LDL Cholesterol Calculated 195 mg/dl; Potassium 4.4 mmol/L (3.3-5.1); Sodium 143 mmol/L (135-145); Total Protein 6.9 g/dL (6.5-8.0); Triglycerides 215 mg/dL
== END 2022-02-18 07:54 | disposition home or self-care (01) ==
LOC: HO.LAB 07:53
PROVIDERS: Visit Provider Internal Medicine
DX: E78.00 Pure hypercholesterolemia, unspecified (principal); F32.A Depression, unspecified; I10 Essential (primary) hypertension; Z91.14 Patient's other noncompliance with medication regimen
CPT/HCPCS: 36415; 80053; 80061

== ENCOUNTER → 2022-03-06 08:56 | Outpatient (BNVA) | payer MEDICARE, MEDICAID, SELFPAY | PROVIDERS: PCP Internal Medicine; Visit Provider Orthopaedic Surgery | DX: M65.4 Radial styloid tenosynovitis [de Quervain] (principal); R20.0 Anesthesia of skin; R20.2 Paresthesia of skin | CPT/HCPCS: 20550; 99212; J1100 ==

== ENCOUNTER 2022-06-04 09:35 | Outpatient (REF) | payer MEDICARE, MEDICAID, SELFPAY ==
[2022-06-04 10:55] LABS: MANUAL DIFF FLAG NO
[2022-06-04 11:04] LABS: Basophils Absolute Auto 0.1 X10*3/uL (0.0-0.2); Eosinophils Absolute Auto 0.2 X10*3/uL (0.0-0.4); Eosinophils Percent Auto 1.9 % (0-4); Hematocrit 44.5 % (37.0-47.0); Hemoglobin 13.9 g/dl (12.0-16.0); Imm Gran Abs Auto 0.02 X10*3/uL (0.00-0.03); Imm Gran Pct Auto 0.2 % (0.0-0.4); Lymphocytes Absolute Auto 2.5 X10*3/uL (1.2-4.9); Lymphocytes Percent Auto 29.6 % (20-40); Mean Corpuscular HGB Conc 31.2 g/dl (31.0-35.0); Mean Corpuscular Hemoglobin 27.9 pg (27.0-33.0); Mean Corpuscular Volume 89.2 fL (80.0-98.0); Mean Platelet Volume 10.1 fL (9.4-12.3); Monocytes Absolute Auto 0.6 X10*3/uL (0.1-1.2); Monocytes Percent Auto 7.5 % (2-11); Neutrophils Percent Auto 59.8 % (45-73); Platelet Count 351 X10*3/uL (160-400); Red Blood Count 4.99 X10*6/uL (4.20-5.50); Red Cell Distribution Width 13.4 % (11.0-16.0); White Blood Count 8.3 X10*3/uL (4.8-10.8)
[2022-06-04 11:38] LABS: Alanine Aminotransferase 24 U/L (0-31); Albumin Level 4.4 g/dL (3.5-5.0); Alkaline Phosphatase 74 U/L (39-117); Anion Gap 12 (12-20); Aspartate Amino Transferase 20 U/L (5-31); Bilirubin Total 0.3 mg/dL (0.0-1.0); Blood Urea Nitrogen 16 mg/dL (9-16); Calcium 9.7 mg/dL (8.4-10.2); Carbon Dioxide 34 mmol/L (22-29); Chloride 104 mmol/L (96-108); Cholesterol 144 mg/dL; Estimated Glomerular Filt Rate > 60; Glucose Fasting 98 mg/dL (60-99); HDL Cholesterol 46 mg/dL; LDL Cholesterol Calculated 72 mg/dl; Potassium 4.6 mmol/L (3.3-5.1); Sodium 145 mmol/L (135-145); Thyroid Stimulating Hormone 0.94 uIU/mL (0.32-4.0); Total Protein 6.7 g/dL (6.5-8.0); Triglycerides 132 mg/dL
== END 2022-06-04 09:36 | disposition home or self-care (01) ==
LOC: HO.10HDL 09:35
PROVIDERS: Visit Provider Internal Medicine
DX: E78.00 Pure hypercholesterolemia, unspecified (principal); F32.4 Major depressive disorder, single episode, in partial remission; I10 Essential (primary) hypertension; Z72.0 Tobacco use
CPT/HCPCS: 36415; 80053; 80061; 84443; 85025; 99202

== ENCOUNTER 2022-06-12 16:35 | Outpatient (REF) | payer MEDICARE, MEDICAID, SELFPAY ==
--- NOTE | ~2022-06-12 | MR_ITS ---
EXAMINATION: MR angio head wo con, MR head/brain wo/w con CLINICAL INFORMATION: Left hemifacial spasm COMPARISON: None TECHNIQUE: Multiplanar multisequence MR imaging of the brain was obtained without and following the administration of 7 mL Gadavist intravenous contrast. Noncontrast [id number] MRA of the brain was also performed. FINDINGS: There is no vascular compression of the cisternal segments of the seventh/eighth nerve complexes or trigeminal nerves. The CSF in Meckel's cave is preserved. The foramina ovale are normal. No cerebellopontine angle lesion is seen. There is no abnormal leptomeningeal enhancement corresponding to basilar cisterns. The third division of the trigeminal nerve is normal along its course in the vehicle operator spaces. No marrow signal abnormality is seen within the mandible. There is no abnormal enhancement or edematous change corresponding to the second division of the trigeminal nerve within the infraorbital foramen or at the level of foramen rotundum. The cavernous sinuses opacify symmetrically. The orbits are normal. There is an arachnoid cyst in the right cerebellopontine angle measuring up to 1.7 cm (series 13 image 39) which demonstrates mass effect on the posterior aspect of the right seventh/8th nerve complex. There is no acute infarct on diffusion-weighted imaging. There is no intracranial hemorrhage on iron-sensitive imaging. No midline shift or herniation. Few scattered foci of supratentorial white matter T2/FLAIR hyperintensity and patchy FLAIR signal abnormality involving the central jorge luis, likely reflecting sequela of chronic microangiopathy. No hydrocephalus. Mild generalized cerebral volume loss with commensurate sulcal and ventricular prominence. No abnormal parenchymal or extra-axial enhancement. The major flow voids at the skull base are preserved. The midline structures are normal. The cerebellar tonsils are normally positioned. The craniocervical junction is normal. Marrow signal is within normal limits. The visualized soft tissues are without significant abnormality. No signal abnormality within the paranasal sinuses or within the mastoid air cells. [id number] MRA of the brain is motion degraded. There is a 5 mm laterally projecting aneurysm of the right supraclinoid ICA (series 3 image 83). There is an apparent high-grade stenosis of the left MCA at the bifurcation which may be artifactual. No other apparent arterial high-grade stenosis or large vessel occlusion. MR/MR angio head wo con IMPRESSION: 1. No etiology for left hemifacial spasm is identified. 2. Right cerebellopontine angle arachnoid cyst measuring up to 1.7 cm demonstrates mass effect on the posterior aspect of the right seventh/8th nerve complex. 3. 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 4. MRA of the brain is motion degraded. 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 Apparent high-grade stenosis of the distal left MCA at the bifurcation which may be artifactual given the degree of motion artifact. Recommend further evaluation with CTA of the brain.
--- NOTE | ~2022-06-12 | MR_ITS ---
EXAMINATION: MR angio head wo con, MR head/brain wo/w con CLINICAL INFORMATION: Left hemifacial spasm COMPARISON: None TECHNIQUE: Multiplanar multisequence MR imaging of the brain was obtained without and following the administration of 7 mL Gadavist intravenous contrast. Noncontrast [id number]-[id number] MRA of the brain was also performed. FINDINGS: There is no vascular compression of the cisternal segments of the seventh/eighth nerve complexes or trigeminal nerves. The CSF in Meckel's cave is preserved. The foramina ovale are normal. No cerebellopontine angle lesion is seen. There is no abnormal leptomeningeal enhancement corresponding to basilar cisterns. The third division of the trigeminal nerve is normal along its course in the fifth grade teacher spaces. No marrow signal abnormality is seen within the mandible. There is no abnormal enhancement or edematous change corresponding to the second division of the trigeminal nerve within the infraorbital foramen or at the level of foramen rotundum. The cavernous sinuses opacify symmetrically. The orbits are normal. There is an arachnoid cyst in the right cerebellopontine angle measuring up to 1.7 cm (series 13 image 39) which demonstrates mass effect on the posterior aspect of the right seventh/8th nerve complex. There is no acute infarct on diffusion-weighted imaging. There is no intracranial hemorrhage on iron-sensitive imaging. No midline shift or herniation. Few scattered foci of supratentorial white matter T2/FLAIR hyperintensity and patchy FLAIR signal abnormality involving the central jorge luis, likely reflecting sequela of chronic microangiopathy. No hydrocephalus. Mild generalized cerebral volume loss with commensurate sulcal and ventricular prominence. No abnormal parenchymal or extra-axial enhancement. The major flow voids at the skull base are preserved. The midline structures are normal. The cerebellar tonsils are normally positioned. The craniocervical junction is normal. Marrow signal is within normal limits. The visualized soft tissues are without significant abnormality. No signal abnormality within the paranasal sinuses or within the mastoid air cells. [id number] MRA of the brain is motion degraded. There is a 5 mm laterally projecting aneurysm of the right supraclinoid ICA (series 3 image 83). There is an apparent high-grade stenosis of the left MCA at the bifurcation which may be artifactual. No other apparent arterial high-grade stenosis or large vessel occlusion. MR/MR head/brain wo/w con IMPRESSION: 1. No etiology for left hemifacial spasm is identified. 2. Right cerebellopontine angle arachnoid cyst measuring up to 1.7 cm demonstrates mass effect on the posterior aspect of the right seventh/8th nerve complex. 3. 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 4. MRA of the brain is motion degraded. 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 Apparent high-grade stenosis of the distal left MCA at the bifurcation which may be artifactual given the degree of motion artifact. Recommend further evaluation with CTA of the brain.
== END 2022-06-12 16:36 | disposition home or self-care (01) ==
LOC: HO.MRI 16:35
PROVIDERS: Visit Provider Nurse Practitioner Family
DX: G51.32 Clonic hemifacial spasm, left (principal); R51.9 Headache, unspecified
CPT/HCPCS: 70544; 70553; A9585

== ENCOUNTER 2022-07-10 08:54 | Outpatient (REF) | payer MEDICARE, MEDICAID, SELFPAY ==
--- NOTE | ~2022-07-10 | CT_ITS ---
EXAMINATION: CT ANGIOGRAM NECK CLINICAL INFORMATION: Previously suspected 5 mm right supraclinoid ICA aneurysm and high-grade stenosis of the distal left MCA on prior MRA for follow up exam. Cerebral aneurysm, nonruptured. COMPARISON: 06/12/2022 MRA. TECHNIQUE: Volumetric CT angiography of the head/neck was performed from the lung apices to the skull vertex utilizing the bolus intravenous administration of 75 mL of Omnipaque 350 contrast material. Delayed postcontrast CT images of the brain, neck and upper chest were obtained. 2D multiplanar reconstructions and 3D MIP renderings were performed either on an independent workstation or at the CT console workstation. The degree of stenosis determined by NASCET criteria. This CT examination was performed using dose optimization techniques as appropriate, variously including the following: *Automated exposure control *Adjustment of mA and/or kV according to patient size (this includes techniques or standardized protocols for targeted exams where dose is matched to indication/reason for exam; i.e. extremities or head) *Use of iterative reconstruction technique DLP: 2333 mGy-cm FINDINGS: CT BRAIN: Mild generalized diffuse brain parenchymal volume loss is noted with a relative biparietal and parasylvian predominance. No acute territorial infarct, intracranial mass lesion, extra-axial fluid collection, hemorrhage, pathologic intracranial enhancement, space-occupying process or mass effect. The major dural sinuses appear opacified. Bliss-white matter differentiation is maintained. Supratentorial brain parenchymal attenuation appears grossly within normal limits. There is a tiny hypodensity in the right jorge luis which is nonspecific and does not correlate to an abnormality seen on the previous MRI; uncertain if this represents a tiny infarct since the previous study. The ventricular system and subarachnoid spaces are consistent with mild volume loss without hydrocephalus. The bony structures appear intact and the visualized airspaces are unopacified. The visualized intraorbital soft tissues appear grossly unremarkable. CT NECK/CHEST: Limited visualization due to artifacts. There is a 5 mm stellate nodular opacity in the anterior right upper lobe with pleural tags associated with it which could be inflammatory or post inflammatory in nature. Scattered pulmonary emphysematous changes are suspected. Probable pleural parenchymal scarring at both lung apices. Visualized mediastinum is grossly unremarkable. Visualized soft tissue neck structures are grossly unremarkable within the limitations of the study. SKELETAL: Multilevel cervical DDD and spondylosis are noted, with lordotic reversal centered at C5. Otherwise, skeletal structures appear grossly intact. CTA: The thoracic aortic shows normal caliber, with a normal three-vessel arch configuration, with patent brachiocephalic vessels. Accounting for artifacts, the vertebral artery origins are patent and normal in caliber. The left vertebral artery is dominant. The cervical vertebral arteries demonstrate no significant focal stenosis or segmental occlusion. There is minimal atheromatous luminal irregularity in the V3 segment of the right vertebral artery. The common carotid arteries are patent and normal in caliber with smooth contours bilaterally with a smoothly contoured right carotid bifurcation. The right ICA is patent and normal in caliber with a patent right external carotid artery. On the left side, there is partially calcified plaque at the bifurcation at the base of the carotid bulb with less than 50% diameter reduction stenosis based on NASCET criteria. Otherwise, the left ICA is patent and normal in caliber with a patent external carotid artery. The intracranial ICAs are patent and normal in caliber. Note is made of a 3 mm wide-necked aneurysm arising from the superolateral wall of the right paraclinoid ICA, ophthalmic segment. The A1 and A2 segments are patent and normal in caliber. The anterior communicating artery is not optimally visualized but is likely within normal limits. The right M1 segment is patent and normal in caliber with a normal appearance to the right M2 branches. On the left side, there is suspicion for a severe short segment focal stenosis at the M1 bifurcation, as suggested on the previous MRA. The intradural vertebral arteries are patent and normal in caliber. The basilar artery is normal in caliber and smoothly contoured. The posterior cerebral arteries are patent and normal in caliber bilaterally. A left posterior communicating artery is visualized. CT/CT angio head neck IMPRESSION: 1. A 3 mm wide-necked aneurysm arising from the superolateral wall of the right paraclinoid ICA, ophthalmic segment. 2. Partially calcified plaque at the left carotid bulb with less than 50% diameter reduction stenosis based on NASCET criteria. 3. Suspicion for a severe short segment focal stenosis at the bifurcation of the distal left M1 segment. 4. A tiny hypodensity in the right jorge luis which is nonspecific. Cannot exclude a tiny infarct since the previous MRI of 06/12/2022. 5. A 5 mm stellate nodular opacity in the anterior right upper lobe. If this patient is not at elevated risk (no history of smoking or underlying malignancy), then no further follow up for this is suggested on the basis of the current Fleischner criteria. If the patient is at elevated risk, then a follow up CT the chest would be recommended in 12 months. 6. Cervical degenerative changes.
[2022-07-10] MEDS: iohexoL 350 MG/ML 100 ML INFUS..BTL IV (10:30)
[2022-07-10 14:40] LABS: Creatinine POC 0.4 mg/dL (0.5-1.4); GFR POC > 60
== END 2022-07-10 08:55 | disposition home or self-care (01) ==
LOC: HO.CT 08:54
PROVIDERS: PCP Internal Medicine; Visit Provider Nurse Practitioner Family
DX: I67.1 Cerebral aneurysm, nonruptured (principal); R51.9 Headache, unspecified; I10 Essential (primary) hypertension; E78.5 Hyperlipidemia, unspecified
CPT/HCPCS: 70496; 70498; 82565; Q9967

== ENCOUNTER → 2022-08-02 08:22 | Outpatient (BNVA) | payer MEDICARE, MEDICAID, SELFPAY | PROVIDERS: PCP Internal Medicine; Visit Provider Nurse Practitioner | DX: K21.9 Gastro-esophageal reflux disease without esophagitis (principal); K59.00 Constipation, unspecified | CPT/HCPCS: 99212 ==

== ENCOUNTER 2022-08-10 07:28 | Outpatient (REF) | payer MEDICARE, MEDICAID, SELFPAY ==
[2022-08-10 07:42] LABS: MANUAL DIFF FLAG NO
[2022-08-10 08:07] LABS: Basophils Absolute Auto 0.1 X10*3/uL (0.0-0.2); Basophils Percent Auto 0.9 % (0-2); Eosinophils Absolute Auto 0.1 X10*3/uL (0.0-0.4); Hematocrit 42.4 % (37.0-47.0); Hemoglobin 13.6 g/dl (12.0-16.0); Imm Gran Abs Auto 0.02 X10*3/uL (0.00-0.03); Imm Gran Pct Auto 0.3 % (0.0-0.4); Lymphocytes Absolute Auto 2.7 X10*3/uL (1.2-4.9); Lymphocytes Percent Auto 41.7 % (20-40); Mean Corpuscular HGB Conc 32.1 g/dl (31.0-35.0); Mean Corpuscular Hemoglobin 27.8 pg (27.0-33.0); Mean Corpuscular Volume 86.5 fL (80.0-98.0); Mean Platelet Volume 9.3 fL (9.4-12.3); Monocytes Absolute Auto 0.4 X10*3/uL (0.1-1.2); Monocytes Percent Auto 6.5 % (2-11); Neutrophils Absolute Auto 3.1 x10*3/uL (2.0-8.3); Neutrophils Percent Auto 48.6 % (45-73); Platelet Count 317 X10*3/uL (160-400); White Blood Count 6.5 X10*3/uL (4.8-10.8)
[2022-08-10 08:24] LABS: Anion Gap 14 (12-20); Blood Urea Nitrogen 13 mg/dL (9-16); Calcium 9.2 mg/dL (8.4-10.2); Carbon Dioxide 26 mmol/L (22-29); Chloride 107 mmol/L (96-108); Estimated Glomerular Filt Rate > 60; Glucose Random 106 mg/dL (60-115); Potassium 4.2 mmol/L (3.3-5.1); Sodium 143 mmol/L (135-145)
[2022-08-10 09:55] LABS: Carbamazepine Tegretol < 2.0 mcg/mL (5.0-12.0)
== END 2022-08-10 07:29 | disposition home or self-care (01) ==
LOC: HO.LAB 07:28
PROVIDERS: PCP Internal Medicine; Visit Provider Nurse Practitioner Family
DX: R20.0 Anesthesia of skin (principal); R20.2 Paresthesia of skin; R51.9 Headache, unspecified; G40.909 Epilepsy, unspecified, not intractable, without status epilepticus; I10 Essential (primary) hypertension; Z79.899 Other long term (current) drug therapy
CPT/HCPCS: 36415; 80048; 80156; 85025

== ENCOUNTER → 2022-08-13 15:03 | Outpatient (BNVA) | payer MEDICARE, MEDICAID, SELFPAY | PROVIDERS: PCP Internal Medicine; Visit Provider Nurse Practitioner Family | DX: G51.32 Clonic hemifacial spasm, left (principal); R51.9 Headache, unspecified; I67.1 Cerebral aneurysm, nonruptured | CPT/HCPCS: 99212 ==

== ENCOUNTER 2022-12-09 08:51 | Outpatient (REF) | payer OTHER, SELFPAY ==
[2022-12-09 10:09] LABS: Alanine Aminotransferase 20 U/L (0-31); Albumin Level 4.1 g/dL (3.5-5.0); Alkaline Phosphatase 66 U/L (39-117); Anion Gap 12 (12-20); Aspartate Amino Transferase 21 U/L (5-31); Bilirubin Total 0.4 mg/dL (0.0-1.0); Blood Urea Nitrogen 22 mg/dL (9-16); Calcium 9.4 mg/dL (8.4-10.2); Carbon Dioxide 30 mmol/L (22-29); Chloride 107 mmol/L (96-108); Cholesterol 138 mg/dL; Estimated Glomerular Filt Rate > 60; Glucose Random 104 mg/dL (60-115); HDL Cholesterol 43 mg/dL; LDL Cholesterol Calculated 69 mg/dl; Potassium 4.3 mmol/L (3.3-5.1); Sodium 145 mmol/L (135-145); Total Protein 6.6 g/dL (6.5-8.0); Triglycerides 134 mg/dL
== END 2022-12-09 08:52 | disposition home or self-care (01) ==
LOC: HO.LAB 08:51
PROVIDERS: PCP Internal Medicine; Visit Provider Internal Medicine
DX: E78.00 Pure hypercholesterolemia, unspecified (principal); F32.4 Major depressive disorder, single episode, in partial remission; I10 Essential (primary) hypertension; Z72.0 Tobacco use
CPT/HCPCS: 36415; 80053; 80061

== ENCOUNTER 2023-01-16 11:02 | Outpatient (REF) | payer OTHER, SELFPAY ==
--- NOTE | ~2023-01-16 | XR_ITS ---
EXAMINATION: XR ELBOW, RIGHT XR ELBOW, LEFT CLINICAL INFORMATION: Pain. COMPARISON: None. TECHNIQUE: 3 views of each elbow. FINDINGS: Right elbow: There is no evidence of acute fracture or dislocation of the right elbow. No right elbow effusion. There is some spurring about the coronoid process and olecranon. There is some mild spurring about the medial and lateral humeral epicondyles which may be related to calcific tendinitis. Joint spaces appear maintained. Left elbow: There is no evidence of acute fracture or dislocation of the left elbow. No left elbow effusion is seen. Left elbow joint spaces are maintained. There is minimal spurring about the coronoid process. There is small calcification septum insertion of the triceps tendon on the olecranon. Calcification is seen involving medial and lateral epicondyles consistent with calcific epicondylitis. XR/XR elbow RT min 3V IMPRESSION: No fracture or effusion of right or left elbows. Evidence for medial and lateral calcific epicondylitis of both elbows.
--- NOTE | ~2023-01-16 | XR_ITS ---
EXAMINATION: XR ELBOW, RIGHT XR ELBOW, LEFT CLINICAL INFORMATION: Pain. COMPARISON: None. TECHNIQUE: 3 views of each elbow. FINDINGS: Right elbow: There is no evidence of acute fracture or dislocation of the right elbow. No right elbow effusion. There is some spurring about the coronoid process and olecranon. There is some mild spurring about the medial and lateral humeral epicondyles which may be related to calcific tendinitis. Joint spaces appear maintained. Left elbow: There is no evidence of acute fracture or dislocation of the left elbow. No left elbow effusion is seen. Left elbow joint spaces are maintained. There is minimal spurring about the coronoid process. There is small calcification septum insertion of the triceps tendon on the olecranon. Calcification is seen involving medial and lateral epicondyles consistent with calcific epicondylitis. XR/XR elbow LT min 3V IMPRESSION: No fracture or effusion of right or left elbows. Evidence for medial and lateral calcific epicondylitis of both elbows.
== END 2023-01-16 11:03 | disposition home or self-care (01) ==
LOC: HO.HOSX 11:02
PROVIDERS: PCP Internal Medicine; Visit Provider Physician Assistant
DX: M77.12 Lateral epicondylitis, left elbow (principal); M77.11 Lateral epicondylitis, right elbow
CPT/HCPCS: 73080

== ENCOUNTER 2023-01-16 11:02 | Outpatient (AMB) | payer OTHER, MEDICAID, SELFPAY ==
--- NOTE | 2023-01-16 11:05 | MHC.OFFVIS ---
Intake Intake Visit Reasons: New prob- B/L Elbow pain Intake Note: Mitzy is a 62 year old right hand dominant female who presents today for an evaluation of her bilateral elbow pain. No hx of injections. No hx of PT. Patient reports her right elbow is worses when it comes to pain than the left, they both swell just about the same. She states this started 5 months ago when she started to notice they were swollen. Patient uses diclofenac ointment which gives her relief. Denies numbness and tingling. Allergies gabapentin [GABAPENTIN] Allergy (Mild, Verified 01/16/23 11:13) MUSCLE SPASMS quetiapine [Seroquel] Allergy (Unknown, Verified 01/16/23 11:13) unknown duloxetine [From CYMBALTA] Adverse Reaction (Mild, Verified 01/16/23 11:13) TREMORS hydroxyzine [From VISTARIL] Adverse Reaction (Mild, Verified 01/16/23 11:13) BLURRED VISION milnacipran [From SAVELLA] Adverse Reaction (Mild, Verified 01/16/23 11:13) BLURRED VISION pregabalin [From LYRICA] Adverse Reaction (Mild, Verified 01/16/23 11:13) MUSCLE SPASMS, SLEEPINESS HPI New prob- B/L Elbow pain HPI Details 62-year-old right hand dominant female who presents in the office today for an evaluation of bilateral elbow pain. The patient claims the right elbow is worse then the left elbow, when speaking about pain. She confirms edema bilaterally. She reports her symptoms began 5 months ago, in 07/2022, when she first noticed the edema. She confirms the use of diclofenac ointment, which gives her relief. She numb and tingling in the ring and little fingers bilaterally. Patient has no history of cortisone injections or physical therapy. FOR[facility]LY [facility], LATER [facility] Medical History Arthritis Bipolar 1 disorder Depression Dyslipidemia Fatty liver Fibromyalgia GERD (gastroesophageal reflux disease) H. pylori infection History of COVID-19 History of marijuana use HTN (hypertension) IBS (irritable bowel syndrome) Personal history of COVID-19 Sensorineural hearing loss Smoker Vertigo Surgical History H/O breast biopsy History of esophagogastroduodenoscopy (EGD) History of tubal ligation Hx of colonoscopy Family History Father Rheumatoid arthritis Mother Rheumatoid arthritis Osteoarthritis Asthma COPD (chronic obstructive pulmonary disease) Dementia Stented coronary artery Sister Rheumatoid arthritis Osteoarthritis Social History Alcohol intake: current Alcohol intake frequency: holidays/special occasions only Patient Tobacco Use Status: Current everyday Tobacco user Substance Use Type: Marijuana Current occupational status: disabled 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 No ecchymosis, erythema, or edema. No tenderness to palpation over the olecranon. Tenderness to the medial or lateral epicondyle. She reports numbness and tingling to the ring and little fingers bilaterally. Assessment & Plan Assessment & Plan (1) Right tennis elbow: Code(s): M77.11 - Lateral epicondylitis, right elbow (2) Left tennis elbow: Code(s): M77.12 - Lateral epicondylitis, left elbow Plan Ms. Everett is a 62-year-old right hand dominant female who presents in the office today for an evaluation of bilateral elbow pain. The patient claims the right elbow is worse then the left elbow, when speaking about pain. She confirms edema bilaterally. She reports her symptoms began 5 months ago, in 07/2022, when she first noticed the edema. She confirms the use of diclofenac ointment, which gives her relief. She numb and tingling in the ring and little fingers bilaterally. Patient has no history of cortisone injections or physical therapy. The patient will be referred to physical therapy. In the event physical therapy does not aid the patient then we will consider moving forward with cortisone injections. I suggested a counter force brace, which she states she has one at home. Follow up will be PRN, or sooner if needed. X-rays of the bilateral elbows which were obtained while in the office today and were reviewed by me, Mariama Jiménez PA-C, revealed no evidence of acute fractures or dislocation bilaterally. Right elbow evidence of ulnar bone spur. EMG of the right upper extremity, obtained on 02/07/2022, revealed; This is an unremarkable study with no evidence of median or ulnar entrapment neuropathy, plexopathy, or radiculopathy. Orders: Orders XR elbow LT min 3V Today M25.529 - Pain in unspecified elbow XR elbow RT min 3V Today M25.529 - Pain in unspecified elbow Patient Instructions: Scribed for Mariama Jiménez PA-C by Kayla Freed medical esthetician, on 01/16/2023 at 11:11 am, EST. Your attestation Coding Level of Care Code New Pt Level 4 (90143) Diagnoses Right tennis elbow M77.11 Left tennis elbow M77.12
== END 2023-01-16 12:18 | disposition home or self-care (01) ==
PROVIDERS: PCP Internal Medicine; Visit Provider Physician Assistant
DX: M77.11 Lateral epicondylitis, right elbow (principal); M77.12 Lateral epicondylitis, left elbow
CPT/HCPCS: 99214

== ENCOUNTER 2023-07-18 07:17 | Outpatient (REF) | payer OTHER, MEDICAID, SELFPAY ==
--- NOTE | ~2023-07-18 | MR_ITS ---
EXAMINATION: MRA HEAD WITHOUT CONTRAST CLINICAL INFORMATION: Follow-up aneurysm. COMPARISON: Head CTA July 10, 2022. TECHNIQUE: MRA of the head was performed without contrast utilizing 3-D [id number]-[id number] technique. FINDINGS: There is a 3.3 mm laterally projecting saccular aneurysm arising from the paraclinoid segment of the right internal carotid artery seen on series 3 image 87/160. The overall size and morphology appears stable compared with July 10, 2022. No additional aneurysm is seen. There is short segment mild fusiform dilatation of a distal left M2 segment within the sylvian fissure without change from prior. No definite stenosis seen at the left MCA bifurcation. The anterior and posterior circulation arteries appear patent. There is -type disposition of the left [employer]GER. On the source images, there is no abnormal arterialized flow. There is no mass effect or midline shift. MR/MR angio head wo con IMPRESSION: Stable appearance of the 3.3 mm laterally projecting saccular aneurysm arising from the paraclinoid segment of the right internal carotid artery. Stable mild fusiform dilatation of a distal left M2 segment. No significant stenosis identified.
== END 2023-07-18 07:18 | disposition home or self-care (01) ==
LOC: HO.MRI 07:17
PROVIDERS: Visit Provider Neurological Surgery
DX: I67.1 Cerebral aneurysm, nonruptured (principal)
CPT/HCPCS: 70544

== ENCOUNTER 2023-09-02 13:16 | Outpatient (AMB) | payer OTHER, MEDICAID, SELFPAY ==
--- NOTE | 2023-09-02 13:56 | A.OFFVIS_ITS ---
Intake Vital Signs 09/02/23 13:59 Height 5 ft 4 in Weight 145 lb BMI 24.9 Intake Visit Reasons: OV- bilat hand pain/ h/o dequervain Intake Note: Mitzy is a 63 year old right hand dominant female whose chief complaint today is of painful locking and catching of the right middle finger. She has a history of bilateral De Quervains, s/p injection March 06 2022.. She complains of pain in multiple joints, as well as locking and catching in the right middle finger. This triggering happens mostly at night and in the morning. She explains that she has pain radiating bilaterally from the hand all the way up to the neck She has been utilizing shantal taping, splinting and ice application for the triggering as well as pain/swelling. Additionally she complains of elbow pain and swelling Allergies gabapentin [GABAPENTIN] Allergy (Mild, Verified 01/16/23 11:13) MUSCLE SPASMS quetiapine [Seroquel] Allergy (Unknown, Verified 01/16/23 11:13) unknown duloxetine [From CYMBALTA] Adverse Reaction (Mild, Verified 01/16/23 11:13) TREMORS hydroxyzine [From VISTARIL] Adverse Reaction (Mild, Verified 01/16/23 11:13) BLURRED VISION milnacipran [From SAVELLA] Adverse Reaction (Mild, Verified 01/16/23 11:13) BLURRED VISION pregabalin [From LYRICA] Adverse Reaction (Mild, Verified 01/16/23 11:13) MUSCLE SPASMS, SLEEPINESS HPI OV- bilat hand pain/ h/o dequervain HPI Details Mitzy is a 63 year old right hand dominant disabled woman presenting today with a primary complaint of a right middle finger locking. She complains of painful locking of her right middle finger, worse in the mornings, which she has been splinting & managing with ice. She is worried this is a Dupuytrens contracture and brought in some literature for this. 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 She currently not working and is on partial disability due to Fibromyalgia. [facility] Medical History (Updated 09/02/23 @ 14:41 by Tay Stone) Sensorineural hearing loss History of COVID-19 H. pylori infection Personal history of COVID-19 History of marijuana use Smoker Vertigo Dyslipidemia IBS (irritable bowel syndrome) Arthritis Fibromyalgia Fatty liver GERD (gastroesophageal reflux disease) Depression Bipolar 1 disorder HTN (hypertension) Surgical History H/O breast biopsy History of tubal ligation Hx of colonoscopy History of esophagogastroduodenoscopy (EGD) Family History Father Rheumatoid arthritis Mother Rheumatoid arthritis Osteoarthritis Asthma COPD (chronic obstructive pulmonary disease) Dementia Stented coronary artery Sister Rheumatoid arthritis Osteoarthritis Social History Alcohol intake: current Alcohol intake frequency: holidays/special occasions only Patient Tobacco Use Status: Current everyday Tobacco user Substance Use Type: Marijuana Current occupational status: disabled 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 Review of Systems Const All systems reviewed & are unremarkable except as noted in HPI and below Physical Exam Vital Signs: BMI result Body Mass Index 24.9 Const General: cooperative, healthy appearing and no acute distress Orientation/consciousness: patient oriented x3 Neuro General: patient oriented x3 Extrem Other: Evaluation of Right Upper Extremity: The patient is alert, oriented, and in no acute distress Neuro: Median, Ulnar, Radial nerves motor and sensory intact and sensation is normal to the tips of all digits Vascular: Cap refill brisk ROM: She can make a fist and extend all her digits Visible and palpable catching of the middle finger Tender over the a1 adriana of the middle finger Psych Appearance: grossly normal Affect: normal affect Attitude: cooperative Office Procedures Fracture Care Details: No fracture, injection Fracture Billing Code: Fracture Billing Code Assessment & Plan Assessment & Plan (1) Trigger middle finger of right hand: Code(s): M65.331 - Trigger finger, right middle finger (2) Fibromyalgia: Code(s): M79.7 - Fibromyalgia (3) Bipolar 1 disorder: Code(s): F31.9 - Bipolar disorder, unspecified Plan Assessment & Plan: 1. Right middle finger trigger finger I educated her about this condition I discussed operative and non-operative treatment options The patient would like to proceed with an injection Injection #1: The risks and benefits of a steroid injection including but not limited to risk of damage to blood vessels, nerves, tendons, infection, skin bleaching, failure to improve symptoms, increased pain, and possible need for further injections or other intervention were discussed with the patient and the patient wishes to proceed with the steroid injection. Once consent was obtained, I sterilely prepped the area over the A1 adriana of the flexor tendon sheath of the Right middle finger. I then injected the flexor tendon sheath with a combination of 1 mL of dexamethasone (4mg/ml), and 1% lidocaine. The patient tolerated the procedure well with no complications. If the patient continues to have locking and catching 4-6 weeks following this injection, they may call to schedule appointment to discuss alternative treatment options 2. Right De Quervain's Tenosynovitis, S/P injection Date of Injection: 03/06/2206/2021 at an outside facility No complaints today 3. Left De Quervain's Tenosynovitis, S/P injection Date of Injection: 06/2021 at an outside facility No complaints today Scribed for Viktoria Barrios MD by Tay Stone, medical office technician, on 09/02/23 at 2:40 PM, EST. Coding Level of Care Code Est Pt Level 3 (46495) Diagnoses Trigger middle finger of right hand M65.331 Fibromyalgia M79.7 Bipolar 1 disorder F31.9 CPT Codes Fracture Care - Fracture Billing Code: Fracture Billing Code ([id number])
[2023-09-02 13:59] VITALS: BMI 24.9
== END 2023-09-02 15:43 | disposition home or self-care (01) ==
PROVIDERS: PCP Internal Medicine; Visit Provider Orthopaedic Surgery
DX: M65.331 Trigger finger, right middle finger (principal); M79.7 Fibromyalgia; F31.9 Bipolar disorder, unspecified
CPT/HCPCS: 20550; 99213

== ENCOUNTER → 2023-09-02 13:16 | Outpatient (BNVA) | payer OTHER, MEDICAID, SELFPAY | PROVIDERS: PCP Internal Medicine; Visit Provider Orthopaedic Surgery | DX: M65.331 Trigger finger, right middle finger (principal); M79.7 Fibromyalgia; F31.9 Bipolar disorder, unspecified | CPT/HCPCS: 20550; J1100 ==

== ENCOUNTER 2023-12-17 07:45 | Outpatient (REF) | payer OTHER, MEDICAID, SELFPAY ==
[2023-12-17 08:40] LABS: Alanine Aminotransferase 21 U/L (0-31); Albumin Level 4.4 g/dL (3.5-5.0); Alkaline Phosphatase 69 U/L (39-117); Anion Gap 14 (12-20); Aspartate Amino Transferase 24 U/L (5-31); Bilirubin Total 0.3 mg/dL (0.0-1.0); Blood Urea Nitrogen 16 mg/dL (9-16); Calcium 9.5 mg/dL (8.4-10.2); Carbon Dioxide 29 mmol/L (22-29); Chloride 104 mmol/L (96-108); Estimated Glomerular Filt Rate > 60; Glucose Random 101 mg/dL (60-115); Potassium 4.5 mmol/L (3.3-5.1); Sodium 142 mmol/L (135-145); Total Protein 7.3 g/dL (6.5-8.0)
== END 2023-12-17 07:46 | disposition home or self-care (01) ==
LOC: HO.LAB 07:45
PROVIDERS: PCP Internal Medicine; Visit Provider Internal Medicine
DX: Z00.00 Encounter for general adult medical examination without abnormal findings (principal); E78.00 Pure hypercholesterolemia, unspecified; F33.41 Major depressive disorder, recurrent, in partial remission; I10 Essential (primary) hypertension; Z72.0 Tobacco use
CPT/HCPCS: 36415; 80053

== ENCOUNTER 2024-05-04 10:59 | Outpatient (AMB) | payer OTHER, MEDICAID, SELFPAY ==
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
[2024-05-04 11:07] VITALS: BP 137/78; PULSE 72; BMI 24.8
== END 2024-05-04 11:49 | disposition home or self-care (01) ==
PROVIDERS: PCP Internal Medicine; Visit Provider Nurse Practitioner
DX: K21.9 Gastro-esophageal reflux disease without esophagitis (principal); R14.0 Abdominal distension (gaseous); K59.00 Constipation, unspecified
CPT/HCPCS: 99213

== ENCOUNTER 2024-07-25 19:34 | Outpatient (REF) | payer MEDICARE, MEDICAID, SELFPAY ==
--- NOTE | ~2024-07-25 | MR_ITS ---
EXAMINATION: MR ANGIOGRAPHY BRAIN WITHOUT CONTRAST CLINICAL INFORMATION: Cerebral aneurysm COMPARISON: And MRA brain 07/18/2023 and 06/12/2022 TECHNIQUE: 3-D [id number] sequence of of MRI brain with and without contrast 06/12/2022.. FINDINGS: There is a 3 mm right ICA para aneurysm which appears stable. Rest of the ICA is normal caliber. Rest of the IC appears unremarkable. There is normal bifurcation and anterior middle several arteries. Fusiform dilation distal left M2 segment described previously is stable as well this could be due to slight tortuosity of the M2 segment and not necessarily an aneurysm on previous exam high-grade stenosis was questioned in the left MCA bifurcation and remains a question. Rest of the left ICA A is normal. Bilateral vertebral arteries intracranial ICA appears normal. The basilar artery and vertebral artery are widely patent. MR/MR angio head wo con IMPRESSION: Stable 3 mm right ICA paraclinoid aneurysm. Mild dilatation of M2 segment left MCA is likely secondary to tortuosity. A stenosis is questioned just proximal to this tortuosity on a second last MRI brain exam and this remains a possibility. Unremarkable basilar and vertebral arteries. The left vertebral artery appears dominant. Electronically signed by: Evan Mccarty MD 07/26/2024 09:55 AM EST
== END 2024-07-25 19:35 | disposition home or self-care (01) ==
LOC: HO.MRI 19:34
PROVIDERS: PCP Internal Medicine; Visit Provider Physician Assistant
DX: I67.1 Cerebral aneurysm, nonruptured (principal)
CPT/HCPCS: 70544

== ENCOUNTER → 2024-07-25 19:55 | Outpatient (BNV) | payer MEDICARE, MEDICAID, SELFPAY | PROVIDERS: PCP Internal Medicine; Visit Provider Radiology Diagnostic Radiology | DX: I72.0 Aneurysm of carotid artery (principal) | CPT/HCPCS: 70544 ==

== ENCOUNTER 2024-08-10 08:47 | Outpatient (RCR) | payer OTHER, MEDICAID, SELFPAY ==
--- NOTE | 2024-08-12 10:25 | MHC.PT.EP ---
[facility] [place] Office [place] Office [place] Office [address] [phone] F: [phone] F: [phone] F: [phone] F: [phone] Physical Therapy Plan of Care Date of Evaluation: 08/10/24 Date of Surgery: N/A Diagnosis: neck pain (RL) pronounced Rhea Assessment: pt is a 64 y/o female presenting to physical therapy w/ referring diagnosis of neck pain. Impairments include pain, decreased range of motion, decreased strength, impaired functional mobility, impaired postural awareness, and altered ambulation mechanics. pt is a good candidate for skilled PT due to age, potential remediation of impairments, typical disease/condition progression and prognosis, comorbidities, and motivation. pt would benefit from skilled PT intervention to provide a tailored strengthening and stretching exercise program, functional training, gait training, postural re-training, neuromuscular re-education, modalities as needed for pain, equipment safety demonstration. Frequency and Duration: The patient will be seen 1x/wk for 3 wks Short Term Goals: pt will be I w/ HEP to promote self-management of condition. 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 Treatment Plan: Modalities to reduce pain, spasms and effusion. Manual therapy to restore motion and function. Therapeutic exercise to improve strength and flexibility. Neuromuscular re-education for posture and balance. Therapeutic activities to return to functional activities of daily living. Electronically signed by: Tona Goldman PT, DPT Please sign and return to therapist. Thank you for your referral.
--- NOTE | 2024-08-26 08:48 | MHC.PT.DC ---
[facility] [place] Office [place] Office [place] Office [address] [phone] F: [phone] F: [phone] F: [phone] F: [phone] Physical Therapy Discharge Report Diagnosis: neck pain (RL) pronounced Rhea Date of Surgery: N/A Date of Evaluation: 08/10/24 Date of Discharge: 08/26/24 Treatments to Date: 1 Cancellations to Date: 0 No Shows to Date: 0 Discharge Status: Patient Elected to Stop Discharge Summary: The patient called to discharge herself from physical therapy. She attended the initial evaluation only. She was found to have significant upregulation of her nervous system leading to increased muscle guarding and poor postural habits. We discussed the importance of diaphragmatic breathing, stress management, and how to position herself for neutral spine posture. Unable to assess response to these recommendations at this time. She is discharged per her request. Electronically signed by: Tona Goldman PT, DPT Please sign and return to therapist. Thank you for your referral.
== END 2024-08-26 08:48 | disposition home or self-care (01) ==
LOC: HO.PT 08:47
PROVIDERS: PCP Internal Medicine; Visit Provider Internal Medicine
DX: M79.7 Fibromyalgia (principal); M54.2 Cervicalgia
CPT/HCPCS: 97112; 97162

== ENCOUNTER 2024-12-20 09:41 | Outpatient (REF) | payer MEDICARE, MEDICAID, SELFPAY ==
--- OUTSIDE RECORDS SUMMARY | 2024-12-20 10:06 | XMS_ITS | Clinical Summary ---
Author Organization [address] [place] [address] [place] [id number] Phone Care Team Providers Care Assembler Faucets Name Role Phone Keysha García MD Primary Care Provider [phone] Allergies Active Allergy Reactions Criticality Noted Date Comments Duloxetine 08/30/2022 tremors Gabapentin 08/30/2022 Adverse reaction caused muscle spasm Hydroxyzine 08/30/2022 Blurred vision Milnacipran 08/30/2022 Blurred vision Pregabalin 08/30/2022 muslce spasms, sleepiness Quetiapine 08/30/2022 Medications diclofenac (VOLTAREN) 75 mg EC tablet Take 1 tablet (75 mg total) by mouth 2 (two) times a day. Active simethicone (MYLICON) 80 mg chewable tablet Chew 1 tablet (80 mg total) every 6 (six) hours if needed. Active omeprazole (PRILOSEC) 20 mg tablet,delayed release (DR/EC) Take by mouth. Active losartan-hydroC HLOROthiazide (HYZAAR) 50-12.5 mg per tablet Take 1 tablet by mouth 1 (one) time each day. Active acetaminophen (TYLENOL) 500 mg tablet Take 1 tablet (500 mg total) by mouth every 6 (six) hours if needed. Active busPIRone (BUSPAR) 10 mg tablet Take 1 tablet (10 mg total) by mouth 2 (two) times a day. 4 Active Banophen 25 mg tablet TAKE 1 TABLET BY MOUTH TWICE A DAY NEEDED FOR ALLERGIES 4 Active FLUoxetine (PROzac) 40 mg capsule Take 1 capsule (40 mg total) by mouth 1 (one) time each day. 4 Active magnesium oxide (MAG-OX) 400 mg (241.3 elemental magnesium) tablet Take 1 tablet (400 mg total) by mouth at bedtime. 4 Active rosuvastatin (CRESTOR) 40 mg tablet Take 1 tablet (40 mg total) by mouth 1 (one) time each day. 4 Active tiZANidine (ZANAFLEX) 4 mg tablet Take 1 tablet (4 mg total) by mouth at bedtime. 4 Active Active Problems Problem Noted Date Diagnosed Date Cerebral aneurysm 08/30/2022 Overview (07/26/2024): Last Assessment & Plan: I discussed this in detail with Ms. Everett, specifically that this 3 mm right ophthalmic aneurysm can be followed with serial imaging and she does not need a referral for this to be treated at this time. The rupture risk is quite low and her only risk factor is smoking which she has agreed to quit. We will plan a repeat MRA in 1 year. Bilateral occipital neuralgia 08/30/2022 Overview (07/26/2024): Last Assessment & Plan: Ms. Everett describes an over 5-year history of headaches and numbness of her neck and scalp worse on the left though it feels like a buzzing zipping up from her neck to her head on the right. The imaging reveals a small right CP angle arachnoid cyst which is congenital and asymptomatic. I suspect which she actually has is occipital neuralgia and she may respond to injections for this. I recommended that she follow-up with Dr. Klein to consider this. Encounters Date Type Department Care Team Description 10/07/2024 Telephone Neurosurgery [facility] [address] [place] [address] Jacqueline Pittman MA Pt question (Spoke with Pt regarding scheduling of CT needed for June,. Will mail CT Appt to Pt. Pt asked if Provider could please call her regarding last imaging result if he was able to view. . Explained that I will send message to Provider. Thank you /) from Last 3 Months Medical History Medical History Date Comments Depressive disorder DX:Depressiv e disorder Dyslipidemia DX:Dyslipidemia Fatty liver DX:Fatty liver Fibromyalgia DX:Fibromyalgia Esophageal reflux DX:Esophageal reflux Essential hypertension DX:Essent ial hypertension Social History Tobacco Use Types Packs/Day Years Used Date Smoking Tobacco: Every Day Cigarettes Comments Unknown Sex and Gender Information Value Date Recorded Sex Assigned at Female 09/14/2024 2:33 PM EDT Legal Sex Female 11:37 PM EST Gender Identity Female 09/14/2024 2:33 PM EDT Sexual Orientation Choose not to disclose 2024 2:33 PM EDT Obstetrics History Last Filed Vital Signs Vital Sign Reading Time Taken Comments Blood Pressure - - Pulse - - Temperature - - Respiratory Rate - - Oxygen Saturation - - Inhaled Oxygen Concentration - - Weight 67.6 kg (149 lb) 09/07/2024 10:15 AM EDT Height 162.6 cm (5' 4 ) 09/07/2024 10:15 AM EDT Body Mass Index 25.58 09/07/2024 10:15 AM EDT Plan of Treatment Upcoming Encounters Date Type Department Care Team (Late st Contact Info) Description 07/05/2025 11:00 AM EST Appointment [facility] CT Scan [address] [place] [address] Health Maintenance Due Date Last Done Comments Breast Cancer Screening 1960 Pneumococcal Vaccine: 50+ Years (1 of 2 - PCV) 1980 Pneumococcal Vaccine: Pediatrics (0 to 5 Years) and At-Risk Patients (6 to 64 Years) (1 of 2 - PCV) 1980 Cervical Cancer Screening: P ap Smear 1982 Hepatitis B Vaccines (3 of 3 - 19+ 3-dose series) 03/10/2011 10/15/2010, 09/07/2010 Zoster Vaccines (1 of 2) 2011 011, 09/07/2010 DTaP,Tdap,and Td Vaccines (2 - Td or Tdap) 09/07/2020 09/07/2010 Cholesterol Screening (Lipid Panel) 05/26/2022 Colorectal Cancer Screening: Colonoscopy 05/26/2022 Depression Screening 05/26/2022 HIV Screening 05/26/2022 Hepatitis C Screening 05/26/2022 Medicare Annual Wellness Visit 05/26/2022 Social Influencers of Health Screening 05/26/2022 COVID-19 Vaccine (1 - 2023-2 5 season) 2024 Influenza Vaccine (Season Ended) 2025 02/28/2012 RSV Immunization Adult Patients (1 - 1-dose 75+ series) 2036 MMR Vaccines Aged Out 10/15/2010, 09/07/2010 No longer eligible based on patient's age to complete this topic Varicella Vaccines Aged Out 10/15/2010, 09/07/2010 No longer eligible based on patient's age to complete this topic HIB Vaccines Aged Out No longer eligi ble based on patient's age to complete this topic HPV Vaccines Aged Out No longer eligi ble based on patient's age to complete this topic Hepatitis A Vaccines Aged Out No long er eligible based on patient's age to complete this topic IPV Vaccines Aged Out No longer eligi ble based on patient's age to complete this topic Meningococcal ACWY Vaccine Aged Out N o longer eligible based on patient's age to complete this topic Meningococcal B Vaccine Aged Out No l onger eligible based on patient's age to complete this topic RSV Immunization Patients Under 20 months Aged Out No longer eligible b ased on patient's age to complete this topic Insurance [place] Care Teams Assembler Faucets Relationship Specialty Start Date End Date Keysha García MD [address] [place] [address] [place] [id number] PCP - General 08/30/22
[2024-12-20 11:12] LABS: Alanine Aminotransferase 30 U/L (0-31); Albumin Level 4.7 g/dL (3.5-5.0); Alkaline Phosphatase 81 U/L (39-117); Anion Gap 12 (12-20); Aspartate Amino Transferase 25 U/L (5-31); Bilirubin Total 0.3 mg/dL (0.0-1.0); Blood Urea Nitrogen 12 mg/dL (9-16); Calcium 9.5 mg/dL (8.4-10.2); Carbon Dioxide 29 mmol/L (22-29); Chloride 106 mmol/L (96-108); Cholesterol 163 mg/dL (<200); Estimated Glomerular Filt Rate > 60; Glucose Random 94 mg/dL (60-115); HDL Cholesterol 48 mg/dL (>40); LDL Cholesterol Calculated 80 mg/dL (<100); Sodium 143 mmol/L (135-145); Total Protein 7.2 g/dL (6.5-8.0); Triglycerides 175 mg/dL (<150)
[2024-12-23 04:13] LABS: Quantiferon TB Gold Plus 1 NEGATIVE (NEGATIVE); TB Test (QFT) Mitogen -Nil 9.22 IU/mL; TB Test (QFT) Nil 0.01 IU/mL
== END 2024-12-20 09:42 | disposition home or self-care (01) ==
LOC: HO.LAB 09:41
PROVIDERS: PCP Internal Medicine; Visit Provider Internal Medicine
DX: E78.00 Pure hypercholesterolemia, unspecified (principal); F32.9 Major depressive disorder, single episode, unspecified; F41.9 Anxiety disorder, unspecified; I10 Essential (primary) hypertension; M79.7 Fibromyalgia
CPT/HCPCS: 36415; 80053; 80061; 86480

== ENCOUNTER 2025-03-08 08:56 | Outpatient (AMB) | payer MEDICARE, MEDICAID, SELFPAY ==
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
[2025-03-08 09:12] VITALS: BP 151/71; PULSE 61; BMI 25.4
--- OUTSIDE RECORDS SUMMARY | 2025-03-08 11:02 | XMS_ITS | Clinical Summary ---
Author Organization [email or web address] Address [address] [place] [address] Care Team Providers Care Clay Pigeon Setter Name Role Phone Unavailable Primary Care Provider Unavailabl e Allergies No known active allergies Medications No known medications Active Problems Problem Noted Date Diagnosed Date Dental caries 12/27/2022 Periodontal disease 12/27/2022 Social History Tobacco Use Types Packs/Day Years Used Date Smoking Tobacco: Never Passive Smoke Exposure: Never Smokeless Tobacco: Never Tobacco Cessation:Counseling Given: No Alcohol Use Standard Drinks/Week Comments Never 0 (1 standard drink = 0.6 oz pur e alcohol) Comments Unknown Sex and Gender Information Value Date Recorded Sex Assigned at Female 04/22/2022 10:18 AM EDT Legal Sex Female 10:18 AM EDT Gender Identity Choose not to disclose 10:18 AM EDT Sexual Orientation Choose not to disclose 2021 10:18 AM EDT Plan of Treatment Health Maintenance Due Date Last Done Comments CT Colonography 1961 Colonoscopy 1961 Colorectal Cancer Screening 1961 Depression Screening 1961 FIT DNA/Cologuard 1961 FIT 1961 FOBT 1961 HIV Screening 1961 SDOH Screening 1961 Sigmoidoscopy 1961 Disability Screening 1961 Alcohol/Substance Use Screening 1973 Hepatitis C Screening 1979 Pap Smear 1982 Cervical Cancer Screening 1991 HPV/Cotest 1991 Mammogram 2001 Hepatitis B Vaccines (3 of 3 - 19+ 3-dose series) 03/10/2011 10/15/2010, 09/07/2010 Pneumococcal Vaccine: 50+ Years (1 of 1 - PCV) 2011 Zoster Vaccines (1 of 2) 2011 Dental Oral Exam 09/26/2016 03/27/2016, , 02/01/2010 DTaP/Tdap/Td Vaccines (2 - Td or Tdap) 09/07/2020 09/07/2010 Dental Prophylaxis 01/10/2024 07/11/2023, 1 , 08/09/2010, Additional history exists Tobacco Screening 07/11/2024 07/11/2023 Dental X-Ray: Bitewings 07/12/2024 07/11/19 24, 12/19/2022, 03/27/2016, Additional history exists COVID-19 Vaccine ( - season) 2025 Influenza Vaccine (#1) 2025 02/28/2012 Dental X-Ray: Full Mouth 07/12/2026 07/11/2023, 12/21 RSV Patients and Patients Aged 60 years or older (1 - 1-dose 75+ series) 2036 HIB Vaccines Aged Out No longer eligi [...] patient's age to complete this topic Meningococcal Vaccine Aged Out No sergio jada eligible based on patient's age to complete this topic RSV under 20 months Aged Out No longe r eligible based on patient's age to complete this topic Rotavirus Vaccines Aged Out No longer eligible based on patient's age to complete this topic Procedures Procedure Name Priority Date/Time Associated Diagnosis Comments PROPHYLAXIS - ADULT Routine 07/11/2023 1 0:00 AM EST INTRAORAL - COMPLETE SERIES OF RADIOGRAPHIC IMAGES Routine 07/11/2023 10:00 AM EST PERIODIC ORAL EVALUATION - ESTABLISHED PATIENT Routine 03/27/2016 12:00 AM EDT from Last 3 Months or Most Recently Relevant to Health Maintenance Insurance [facility] MEDICAID STAND ADULT
--- OUTSIDE RECORDS SUMMARY | 2025-03-08 11:02 | XMS_ITS | Encounter Summary ---
Author Organization [employer] Address [address] [place] [address] Care Team Providers Care Boat Dock Operator Name Role Phone Unavailable Primary Care Provider Unavailabl e Reason for Visit * Reason Onset Date Comments Appointment 12/20/2022 Encounter Details Date Type Department Care Team (Late st Contact Info) Description 12/20/2022 Telephone [facility] [address] [place] [address] Arnav Douglass DDS [address], [place] [id number] Appointment Social History Tobacco Use Types Packs/Day Years Used Date Smoking Tobacco: Never Assessed Comments Unknown Sex and Gender Information Value Date Recorded Sex Assigned at Female 04/22/2022 10:18 AM EDT Legal Sex Female 10:18 AM EDT Gender Identity Choose not to disclose 10:18 AM EDT Sexual Orientation Choose not to disclose 2021 10:18 AM EDT COVID-19 Exposure Response Date Recorded In the last 10 days, have yo u been in contact with someone who was confirmed or suspected to have Coronavirus/COVID-19? No / Unsure 12/19/2022 9:04 AM EDT documented as of this encounter Miscellaneous Notes * Telephone Encounter - Kayla Polanco - 12/20/2022 2:01 PM EDT Thank you patient was informed * Telephone Encounter - Kayla Polanco - 12/20/2022 12:08 PM EDT Mitzy Everett patient was seen on 12/19/22 and called in and stated she is still having a lot of pain and would like to know if something can be sent to the pharmacy to [facility] on [address] please advise . documented in this encounter Plan of Treatment Not on file documented as of this encounter Visit Diagnoses Not on filedocumented in this encounter
--- OUTSIDE RECORDS SUMMARY | 2025-03-08 11:02 | XMS_ITS | Clinical Summary ---
Author Organization [address] [place] [address] [place] [id number] Phone Care Team Providers Care Cut Tobacco Bulker Name Role Phone Keysha García MD Primary Care Provider [phone] Allergies Active Allergy Reactions Criticality Noted Date [...] follow-up with Dr. Klein to consider this. Medical History Medical History Date Comments Depressive [...] Info) Description 07/05/2025 11:00 AM EST Appointment [facility] CT Scan [address] [place] [address] Health Maintenance Due Date Last Done Comments Breast Cancer Screening 1961 Pneumococcal Vaccine: 50+ Years (1 of 2 - PCV) 1980 Cervical Cancer Screening: P ap Smear 1982 Hepatitis B Vaccines (3 of 3 - 19+ 3-dose series) 03/10/2011 10/15/2010, 09/07/2010 Zoster Vaccines (1 of 2) 2011 011, 09/07/2010 DTaP,Tdap,and Td Vaccines (2 - Td or Tdap) 09/07/2020 09/07/2010 Cholesterol Screening (Lipid Panel) 05/26/2022 Colorectal Cancer Screening: Colonoscopy 05/26/2022 HIV Screening 05/26/2022 Hepatitis C Screening 05/26/2022 Medicare Annual Wellness Visit 05/26/2022 Social Influencers of Health Screening 05/26/2022 Depression Screening 06/23/2024 COVID-19 Vaccine (1 - 2023-2 5 season) 2025 Influenza Vaccine (#1) 2025 02/28/2012 RSV Immunization Adult Patients (1 [...] to complete this topic Insurance MEDICAID - [place] MEDICARE Care Teams Cut Tobacco Bulker Relationship Specialty Start Date End Date Keysha García MD [address] [place] [address] [place] [address] PCP - General 08/30/22
== END 2025-03-08 10:39 ==
LOC: HO.HGI 08:57
PROVIDERS: PCP Internal Medicine; Visit Provider Nurse Practitioner
DX: K59.00 Constipation, unspecified (principal); K21.9 Gastro-esophageal reflux disease without esophagitis; M54.50 Low back pain, unspecified; M79.606 Pain in leg, unspecified; R10.9 Unspecified abdominal pain; M25.559 Pain in unspecified hip
CPT/HCPCS: 99214

== ENCOUNTER 2025-03-08 08:56 | Outpatient (REF) | payer MEDICARE, MEDICAID, SELFPAY ==
--- NOTE | ~2025-03-08 | XR_ITS ---
EXAMINATION: XR LUMBOSACRAL SPINE CLINICAL INFORMATION: M54.50 - Low back pain, unspecified COMPARISON: 06/11/2014. TECHNIQUE: Three views of the lumbosacral spine. FINDINGS: There is no significant scoliosis. There is mild straightening of the normal lordosis. There is no significant subluxation. There is no fracture, compression deformity, or suspicious bone lesion evident. Moderate multilevel disc degeneration noted, with more severe changes at L2-3, L3-4, and L5-S1. There is endplate sclerosis at L3-4 and L5-S1. Hypertrophic degenerative facet changes are evident L3-S1. No soft tissue abnormalities present. There are early vascular calcifications. XR/XR lumbar spine 2-3V IMPRESSION: 1. No acute bony abnormality of the lumbar spine. 2. Moderate multilevel spondylosis. Electronically signed by: Curt Courtney MD 03/08/2025 10:23 AM EDT
--- NOTE | ~2025-03-08 | XR_ITS ---
EXAMINATION: XR SACROILIAC JOINTS CLINICAL INFORMATION: M54.50 - Low back pain, unspecified COMPARISON: None available. TECHNIQUE: 3 views of the sacroiliac joints FINDINGS: Bones and soft tissues are normal. No fracture. Alignment is anatomic. Sacroiliac joint spaces are well-maintained without erosions or surrounding sclerosis. XR/XR sacroiliac joint 1-2V IMPRESSION: Normal sacroiliac joints. Electronically signed by: Curt Courtney MD 03/08/2025 10:20 AM EDT
--- NOTE | ~2025-03-08 | XR_ITS ---
EXAMINATION: XR HIP 2 OR MORE VIEWS LEFT HISTORY: M25.559 - Pain in unspecified hip COMPARISON: There are no prior studies available for comparison. FINDINGS: Two views of the left hip are submitted. Osseous mineralization is normal. There is no fracture or dislocation. There is mild joint space narrowing. The soft tissues are unremarkable. XR/XR hip LT min 2V IMPRESSION: Mild joint space narrowing. Electronically signed by: Francisco Rinaldi MD 03/08/2025 10:21 AM EDT
== END 2025-03-08 08:57 | disposition home or self-care (01) ==
LOC: HO.XRAY 08:56
PROVIDERS: PCP Internal Medicine; Visit Provider Nurse Practitioner
DX: K21.9 Gastro-esophageal reflux disease without esophagitis (principal); K59.00 Constipation, unspecified; R14.0 Abdominal distension (gaseous); M25.552 Pain in left hip; M79.605 Pain in left leg; M54.50 Low back pain, unspecified; Z79.899 Other long term (current) drug therapy
CPT/HCPCS: 72100; 72200; 73502; 99212

== ENCOUNTER → 2025-03-08 09:55 | Outpatient (BNV) | payer MEDICARE, MEDICAID, SELFPAY | PROVIDERS: PCP Internal Medicine; Visit Provider Radiology Diagnostic Radiology | DX: M47.816 Spondylosis without myelopathy or radiculopathy, lumbar region (principal); M25.552 Pain in left hip; M54.50 Low back pain, unspecified | CPT/HCPCS: 72100; 72200; 73502 ==